=== PATIENT | female | born 1935 | race Caucasian/White ===

== ENCOUNTER → 2016-07-28 | Outpatient (CLI) | payer MEDICARE ==
--- OUTSIDE RECORDS SUMMARY | 2016-07-28 09:45 | XMS REPORT | Continuity of Care Document ---
Author Author [facility] Organization [facility] Address Unknown Phone Unavailable Care Team Providers Care Shear Setter Name Role Phone Raquel Dye PCP [phone] Source Comments Some departments are not documenting in the electronic medical record. If you do not see the information that you expected, contact Release of Information in the Health Information Management department at [phone] for further assistance in locating additional records.[facility] Active Allergies and Adverse Reactions No Known Allergies Current Medications Prescription Sig. Disp. Refills Start End Date Status Date FEXOFENADINE HCL (EZRA Take by mouth daily as Active PO) needed. acetaminophen (TYLENOL) Take 650 mg by mouth as Active 325 mg tablet Needed. metformin-ER(+) Take 1,000 mg by mouth Active (FORTAMET) 1,000 mg daily with dinner. tablet lisinopril (PRINIVIL; Take 5 mg by mouth daily. Active ZESTRIL) 5 mg tablet hydrochlorothiazide Take 25 mg by mouth Active (HYDRODIURIL) 25 mg daily. tablet Active Problems Problem Noted Date Non Hodgkin's lymphoma (HCC) 12/20/2013 Overview: Stage IA-E, B cell, MALT, non-Hodgkin's lymphoma of the orbit originally diagnosed in 2007. Completed two years of maintence Rituxan on 08/31/2011. L ast Assessment & Plan: After discussion with Dr. Vogt, the patient will return to be seen every 6 months with seeing her PCP every 6 months so that she is being evaluated every 3 months. She was concerned about driving in the winter. She will return in July with a repeat CBC, CMP, Beta 2, CRP, IgG, IgM, and IgA. She will call back sooner if she notices any night sweats, abnormal swelling, or unintentional weight loss. Social History Tobacco Use Types Packs/Day Years Used Date Never Smoker Last Filed Vital Signs Vital Sign Reading Time Taken Blood Pressure 135/96 12/20/2013 1:12 PM CDT Pulse 95 12/20/2013 1:12 PM CDT Temperature 37.1 C (98.8 F) 12/20/2013 1:12 PM CDT Respiratory Rate 20 12/20/2013 1:12 PM CDT Height 1.575 m (5' 2") 12/20/2013 1:12 PM CDT Weight 62.596 kg (138 lb) 12/20/2013 1:12 PM CDT Body Mass Index 25.23 12/20/2013 1:12 PM CDT Oxygen Saturation - - Plan of Care Health Maintenance Due Date Last Done Comments Physical (Comprehensive) 01/12/1942 Exam Pertussis Vaccine 01/12/1947 Tetanus Vaccine 01/12/1953 Breast Cancer Screening 1976 Shingles Vaccine 1996 Osteoporosis Screening 01/12/2001 Prevnar/Pneumovax (#1) 01/12/2001 Influenza Vaccine 01/15/2015 Results from Last 3 Months Not on file
== END ==
LOC: FS 09:42
PROVIDERS: ATTEND Internal Medicine Hematology & Oncology
DX: C88.4 Extranodal marginal zone B-cell lymphoma of mucosa-associated lymphoid tissue [MALT-lymphoma] (principal); I10 Essential (primary) hypertension; E11.9 Type 2 diabetes mellitus without complications; I71.9 Aortic aneurysm of unspecified site, without rupture; Z92.3 Personal history of irradiation; Z79.899 Other long term (current) drug therapy
CPT/HCPCS: 99213

== ENCOUNTER → 2016-08-18 | Outpatient (CLI) | payer MEDICARE | LOC: FS 10:03 | PROVIDERS: ATTEND Internal Medicine Hematology & Oncology | DX: C88.4 Extranodal marginal zone B-cell lymphoma of mucosa-associated lymphoid tissue [MALT-lymphoma] (principal); I10 Essential (primary) hypertension; E11.9 Type 2 diabetes mellitus without complications; I71.9 Aortic aneurysm of unspecified site, without rupture; Z92.3 Personal history of irradiation; Z79.899 Other long term (current) drug therapy; Z79.84 Long term (current) use of oral hypoglycemic drugs | CPT/HCPCS: 99213 ==

== ENCOUNTER → 2016-08-25 | Outpatient (CLI) | payer MEDICARE ==
--- NOTE | 2016-08-26 13:30 | Diagnostic Imaging Report ---
EXAMINATION: PET-CT. TECHNIQUE: Serum glucose level at the time of the study is: 165 mg/dL. 12.7 mCi of FDG was administered intravenously followed by obtaining PET images with corresponding noncontrast CT scan images. The CT scan was performed for anatomic correlation and attenuation correction and was not performed according to the diagnostic protocol of the areas covered. The scan was performed from the head to mid thighs. INDICATION: MALT lymphoma. COMPARISON: 02/06/2014. FINDINGS: There is symmetric FDG uptake seen in the brain. In the neck, there is no significant hypermetabolic mass. In the lungs, there are peripheral patchy areas of ground-glass opacity with a mild degree of increased FDG uptake seen with the SUV in the range between 2.5 and 3.5. This is seen bilaterally. It is favored to be related to inflammatory pneumonitis. In the abdomen and pelvis, there is urinary tract excretion of the tracer seen. There are nonfocal areas of moderate intensity uptake seen in the colon probably related to physiologic or inflammatory etiology. No suspicious hypermetabolic mass is identified. Incidental finding of a large calcified gallstone is seen. There is also a small central posterior right breast nodule, which appears smaller compared to 2014 exam suggestive of benign etiology. IMPRESSION: 1. Peripheral pulmonary ground-glass opacities with mild associated hypermetabolism is favored to be related to inflammatory pneumonitis. 2. No suspicious hypermetabolic mass is seen. 3. Large calcified gallstone. Dictated by: Dictated on workstation # [id number]
== END ==
LOC: RAD 08:25
PROVIDERS: ATTEND Internal Medicine Hematology & Oncology
DX: Z01.89 Encounter for other specified special examinations (principal); C88.4 Extranodal marginal zone B-cell lymphoma of mucosa-associated lymphoid tissue [MALT-lymphoma]; C79.51 Secondary malignant neoplasm of bone

== ENCOUNTER → 2016-11-24 | Outpatient (CLI) | payer MEDICARE | LOC: FS 13:18 | PROVIDERS: ATTEND Internal Medicine Hematology & Oncology | DX: C88.4 Extranodal marginal zone B-cell lymphoma of mucosa-associated lymphoid tissue [MALT-lymphoma] (principal); R05 Cough; I10 Essential (primary) hypertension; E11.9 Type 2 diabetes mellitus without complications; I71.2 Thoracic aortic aneurysm, without rupture; Z92.3 Personal history of irradiation; Z79.899 Other long term (current) drug therapy; Z79.84 Long term (current) use of oral hypoglycemic drugs | CPT/HCPCS: 99213 ==

== ENCOUNTER → 2017-01-05 | Outpatient (CLI) | payer MEDICARE | LOC: FS 14:15 | PROVIDERS: ATTEND Internal Medicine Hematology & Oncology | DX: C88.4 Extranodal marginal zone B-cell lymphoma of mucosa-associated lymphoid tissue [MALT-lymphoma] (principal); R05 Cough; I10 Essential (primary) hypertension; E11.9 Type 2 diabetes mellitus without complications; I71.2 Thoracic aortic aneurysm, without rupture; Z92.3 Personal history of irradiation; Z79.899 Other long term (current) drug therapy; Z79.84 Long term (current) use of oral hypoglycemic drugs | CPT/HCPCS: 99213 ==

== ENCOUNTER → 2017-04-13 | Outpatient (CLI) | payer MEDICARE ==
--- NOTE | 2017-04-14 09:31 | Diagnostic Imaging Report ---
EXAMINATION: PET-CT TECHNIQUE: Serum glucose level at the time of the study is: 130 mg/dL. 12.8 mCi of FDG was administered intravenously followed by obtaining PET images with corresponding noncontrast CT scan images. The CT scan was performed for anatomic correlation and attenuation correction and was not performed according to the diagnostic protocol of the areas covered. The scan was performed from the head to mid thighs. INDICATION: MALT lymphoma followup COMPARISON: 08/25/2016 Findings: The brain has symmetric FDG uptake. There is a moderate symmetric uptake seen along the posterior aspect of the vocal cord area, probably physiologic. No convincing corresponding soft tissue mass is seen. In the chest there is no significant hypermetabolic focus of activity or lymphadenopathy seen. In the abdomen and pelvis: Urinary tract excretion of the tracer and prominent bowel activity is seen, presumably physiologic with no suspicious hypermetabolic mass or lymphadenopathy is identified. CT images demonstrate a large gallstone without evidence of cholecystitis. The lungs demonstrate bilateral peripheral fibrotic changes without changes from 08/25/2016. There is also a 4.7 cm ascending aortic aneurysm without significant change. IMPRESSION: 1. No suspicious hypermetabolic lesion or lymph node is noted. 2. Unchanged 4.7 CM ascending aortic aneurysm. 3. Large gallstone with no evidence of cholecystitis. 4. Unchanged peripheral pulmonary fibrotic changes. Dictated by: Dictated on workstation # [id number]
== END ==
LOC: RAD 09:32
PROVIDERS: ATTEND Internal Medicine Hematology & Oncology
DX: C88.4 Extranodal marginal zone B-cell lymphoma of mucosa-associated lymphoid tissue [MALT-lymphoma] (principal); I71.2 Thoracic aortic aneurysm, without rupture; K80.20 Calculus of gallbladder without cholecystitis without obstruction; J84.10 Pulmonary fibrosis, unspecified

== ENCOUNTER → 2017-05-19 | Outpatient (CLI) | payer MEDICARE | LOC: RT 09:06 | PROVIDERS: ATTEND Nurse Practitioner Adult Health | DX: J84.10 Pulmonary fibrosis, unspecified (principal); R06.02 Shortness of breath; C88.4 Extranodal marginal zone B-cell lymphoma of mucosa-associated lymphoid tissue [MALT-lymphoma] ==

== ENCOUNTER → 2017-05-27 | Outpatient (CLI) | payer MEDICARE ==
--- NOTE | 2017-05-27 15:13 | Diagnostic Imaging Report ---
INDICATION: Shortness of breath. History of lymphoma. TECHNIQUE: Two view chest at 3:19 PM. CORRELATION STUDY: Portions of a PET/CT dated 04/13/2017. FINDINGS: The heart size is enlarged. The vasculature does appear to be slightly prominent. There are scattered pulmonary/parenchymal densities throughout both lung bryant, somewhat more pronounced in the peripheral and basilar distribution. While some findings may be chronic, they do appear to be more pronounced when compared with the prior CT imaging, suspect for superimposed likely infiltrate. Edema could also give this appearance. There is also a slightly nodular appearance in some areas noted. The lung bryant overall do appear to be slightly hyperinflated. There is S-type thoracolumbar scoliotic curvature. IMPRESSION: 1. Cardiac enlargement with at least a mild component of vascular congestion. 2. While there does appear to be likely chronic change of the lung bryant, there do appear to be increasing densities, particularly over the lung bases, suspect for superimposed infiltrate versus edema. The possibility of underlying neoplastic involvement would be difficult to exclude. Dictated by: Dictated on workstation # [id number]
== END ==
LOC: RAD 14:49
PROVIDERS: ATTEND Nurse Practitioner Family
DX: I51.7 Cardiomegaly (principal); Z85.72 Personal history of non-Hodgkin lymphomas
CPT/HCPCS: 71046

== ENCOUNTER → 2017-06-10 | Outpatient (CLI) | payer MEDICARE ==
[2017-06-10 12:43] LABS: BUN/CREATININE RATIO 16; CALCIUM 9.9 MG/DL (8.5-10.1); CARBON DIOXIDE 25 MMOL/L (21-32); CHLORIDE 97 MMOL/L (98-107); CREATININE SERUM 0.68 MG/DL (0.60-1.30); GFR ESTIMATED > 60; GLUCOSE 134 MG/DL (70-105); POTASSIUM 4.2 MMOL/L (3.6-5.0); SODIUM 134 MMOL/L (135-145)
== END ==
LOC: LAB 12:05
PROVIDERS: ATTEND Internal Medicine Critical Care Medicine
DX: J44.9 Chronic obstructive pulmonary disease, unspecified (principal); R06.02 Shortness of breath
CPT/HCPCS: 36415; 80048; 83880

== ENCOUNTER 2017-06-15 14:49 | Outpatient (RCR) | payer MEDICARE ==
[2017-04-22 09:02] LABS: BASOPHILS # (AUTO) 0.1 10^3/uL (0.0-0.1); BASOPHILS % (AUTO) 1 % (0-10); EOSINOPHILS # (AUTO) 0.3 10^3/uL (0.0-0.3); EOSINOPHILS % (AUTO) 5 % (0-10); HEMATOCRIT 41 % (35-52); HEMOGLOBIN 13.8 G/DL (11.5-16.0); LYMPHOCYTES % (AUTO) 14 % (12-44); MEAN CORPUSCULAR HEMOGLOBIN 29 PG (25-34); MEAN CORPUSCULAR HGB CONC 34 G/DL (32-36); MEAN CORPUSCULAR VOLUME 85 FL (80-99); MEAN PLATELET VOLUME 9.9 FL (7.4-10.4); MONOCYTES # (AUTO) 0.4 X 10^3 (0.0-1.0); MONOCYTES % (AUTO) 6 % (0-12); NEUTROPHILS # (AUTO) 5.3 X 10^3 (1.8-7.8); NEUTROPHILS % (AUTO) 75 % (42-75); PLATELET COUNT 272 10^3/uL (130-400); RED CELL DISTRIBUTION WIDTH 14.5 % (10.0-14.5); WHITE BLOOD COUNT 7.1 10^3/uL (4.3-11.0)
[2017-04-22 09:25] LABS: BUN/CREATININE RATIO 21; CALCIUM 9.6 MG/DL (8.5-10.1); CARBON DIOXIDE 25 MMOL/L (21-32); CHLORIDE 96 MMOL/L (98-107); CREATININE SERUM 0.62 MG/DL (0.60-1.30); GFR ESTIMATED > 60; GLUCOSE 157 MG/DL (70-105); POTASSIUM 3.8 MMOL/L (3.6-5.0); SODIUM 130 MMOL/L (135-145)
[2017-04-29 08:52] LABS: BASOPHILS # (AUTO) 0.1 10^3/uL (0.0-0.1); BASOPHILS % (AUTO) 1 % (0-10); EOSINOPHILS # (AUTO) 0.4 10^3/uL (0.0-0.3); EOSINOPHILS % (AUTO) 5 % (0-10); HEMATOCRIT 41 % (35-52); LYMPHOCYTES # (AUTO) 1.3 X 10^3 (1.0-4.0); LYMPHOCYTES % (AUTO) 15 % (12-44); MEAN CORPUSCULAR HEMOGLOBIN 29 PG (25-34); MEAN CORPUSCULAR HGB CONC 34 G/DL (32-36); MEAN CORPUSCULAR VOLUME 85 FL (80-99); MEAN PLATELET VOLUME 10.1 FL (7.4-10.4); MONOCYTES # (AUTO) 0.5 X 10^3 (0.0-1.0); MONOCYTES % (AUTO) 5 % (0-12); NEUTROPHILS # (AUTO) 6.6 X 10^3 (1.8-7.8); NEUTROPHILS % (AUTO) 74 % (42-75); PLATELET COUNT 313 10^3/uL (130-400); RED BLOOD COUNT 4.85 10^6/uL (4.35-5.85); RED CELL DISTRIBUTION WIDTH 14.7 % (10.0-14.5); WHITE BLOOD COUNT 8.9 10^3/uL (4.3-11.0)
[2017-04-29 09:09] LABS: BUN/CREATININE RATIO 17; CALCIUM 9.3 MG/DL (8.5-10.1); CARBON DIOXIDE 22 MMOL/L (21-32); CHLORIDE 93 MMOL/L (98-107); CREATININE SERUM 0.65 MG/DL (0.60-1.30); GFR ESTIMATED > 60; GLUCOSE 140 MG/DL (70-105); POTASSIUM 4.5 MMOL/L (3.6-5.0); SODIUM 127 MMOL/L (135-145)
[2017-05-06 09:05] LABS: BASOPHILS # (AUTO) 0.1 10^3/uL (0.0-0.1); BASOPHILS % (AUTO) 1 % (0-10); EOSINOPHILS # (AUTO) 0.5 10^3/uL (0.0-0.3); EOSINOPHILS % (AUTO) 7 % (0-10); HEMATOCRIT 40 % (35-52); HEMOGLOBIN 13.5 G/DL (11.5-16.0); LYMPHOCYTES # (AUTO) 1.1 X 10^3 (1.0-4.0); LYMPHOCYTES % (AUTO) 14 % (12-44); MEAN CORPUSCULAR HEMOGLOBIN 29 PG (25-34); MEAN CORPUSCULAR HGB CONC 34 G/DL (32-36); MEAN CORPUSCULAR VOLUME 86 FL (80-99); MEAN PLATELET VOLUME 10.1 FL (7.4-10.4); MONOCYTES # (AUTO) 0.4 X 10^3 (0.0-1.0); MONOCYTES % (AUTO) 5 % (0-12); NEUTROPHILS # (AUTO) 5.8 X 10^3 (1.8-7.8); NEUTROPHILS % (AUTO) 73 % (42-75); PLATELET COUNT 285 10^3/uL (130-400); RED CELL DISTRIBUTION WIDTH 14.4 % (10.0-14.5); WHITE BLOOD COUNT 7.9 10^3/uL (4.3-11.0)
[2017-05-06 09:25] LABS: BUN/CREATININE RATIO 26; CALCIUM 9.7 MG/DL (8.5-10.1); CARBON DIOXIDE 25 MMOL/L (21-32); CHLORIDE 98 MMOL/L (98-107); CREATININE SERUM 0.65 MG/DL (0.60-1.30); GFR ESTIMATED > 60; GLUCOSE 138 MG/DL (70-105); POTASSIUM 4.4 MMOL/L (3.6-5.0); SODIUM 133 MMOL/L (135-145)
[2017-05-13 08:59] LABS: BASOPHILS # (AUTO) 0.1 10^3/uL (0.0-0.1); BASOPHILS % (AUTO) 1 % (0-10); EOSINOPHILS # (AUTO) 0.5 10^3/uL (0.0-0.3); EOSINOPHILS % (AUTO) 6 % (0-10); HEMATOCRIT 39 % (35-52); HEMOGLOBIN 13.1 G/DL (11.5-16.0); LYMPHOCYTES # (AUTO) 0.9 X 10^3 (1.0-4.0); LYMPHOCYTES % (AUTO) 12 % (12-44); MEAN CORPUSCULAR HEMOGLOBIN 29 PG (25-34); MEAN CORPUSCULAR HGB CONC 34 G/DL (32-36); MEAN CORPUSCULAR VOLUME 85 FL (80-99); MEAN PLATELET VOLUME 9.8 FL (7.4-10.4); MONOCYTES # (AUTO) 0.4 X 10^3 (0.0-1.0); MONOCYTES % (AUTO) 5 % (0-12); NEUTROPHILS # (AUTO) 5.5 X 10^3 (1.8-7.8); NEUTROPHILS % (AUTO) 76 % (42-75); PLATELET COUNT 279 10^3/uL (130-400); RED BLOOD COUNT 4.58 10^6/uL (4.35-5.85); RED CELL DISTRIBUTION WIDTH 14.4 % (10.0-14.5); WHITE BLOOD COUNT 7.3 10^3/uL (4.3-11.0)
[2017-05-13 09:20] LABS: ALANINE AMINOTRANSFERASE 7 U/L (0-55); ALBUMIN 3.6 GM/DL (3.2-4.5); ALKALINE PHOSPHATASE 81 U/L (40-136); BILIRUBIN,TOTAL 0.7 MG/DL (0.1-1.0); BUN/CREATININE RATIO 16; CALCIUM 9.4 MG/DL (8.5-10.1); CARBON DIOXIDE 24 MMOL/L (21-32); CHLORIDE 97 MMOL/L (98-107); CREATININE SERUM 0.67 MG/DL (0.60-1.30); GFR ESTIMATED > 60; GLUCOSE 137 MG/DL (70-105); POTASSIUM 4.3 MMOL/L (3.6-5.0); SODIUM 130 MMOL/L (135-145); TOTAL PROTEIN 7.4 GM/DL (6.4-8.2)
[2017-05-19 10:15] LABS: BASOPHILS # (AUTO) 0.1 10^3/uL (0.0-0.1); BASOPHILS % (AUTO) 1 % (0-10); EOSINOPHILS # (AUTO) 0.5 10^3/uL (0.0-0.3); EOSINOPHILS % (AUTO) 6 % (0-10); HEMATOCRIT 43 % (35-52); HEMOGLOBIN 14.7 G/DL (11.5-16.0); LYMPHOCYTES # (AUTO) 1.2 X 10^3 (1.0-4.0); LYMPHOCYTES % (AUTO) 14 % (12-44); MEAN CORPUSCULAR HEMOGLOBIN 28 PG (25-34); MEAN CORPUSCULAR HGB CONC 34 G/DL (32-36); MEAN CORPUSCULAR VOLUME 84 FL (80-99); MONOCYTES # (AUTO) 0.5 X 10^3 (0.0-1.0); MONOCYTES % (AUTO) 6 % (0-12); NEUTROPHILS # (AUTO) 6.2 X 10^3 (1.8-7.8); NEUTROPHILS % (AUTO) 73 % (42-75); PLATELET COUNT 313 10^3/uL (130-400); RED BLOOD COUNT 5.18 10^6/uL (4.35-5.85); RED CELL DISTRIBUTION WIDTH 14.8 % (10.0-14.5); WHITE BLOOD COUNT 8.4 10^3/uL (4.3-11.0)
[2017-05-19 11:18] LABS: BUN/CREATININE RATIO 27; CALCIUM 9.4 MG/DL (8.5-10.1); CARBON DIOXIDE 23 MMOL/L (21-32); CHLORIDE 95 MMOL/L (98-107); CREATININE SERUM 0.63 MG/DL (0.60-1.30); GFR ESTIMATED > 60; GLUCOSE 112 MG/DL (70-105); POTASSIUM 3.8 MMOL/L (3.6-5.0); SODIUM 130 MMOL/L (135-145)
[2017-05-27 11:46] LABS: BASOPHILS # (AUTO) 0.1 10^3/uL (0.0-0.1); BASOPHILS % (AUTO) 1 % (0-10); EOSINOPHILS # (AUTO) 0.4 10^3/uL (0.0-0.3); EOSINOPHILS % (AUTO) 6 % (0-10); HEMATOCRIT 40 % (35-52); HEMOGLOBIN 13.7 G/DL (11.5-16.0); LYMPHOCYTES # (AUTO) 1.2 X 10^3 (1.0-4.0); LYMPHOCYTES % (AUTO) 17 % (12-44); MEAN CORPUSCULAR HEMOGLOBIN 29 PG (25-34); MEAN CORPUSCULAR HGB CONC 34 G/DL (32-36); MEAN CORPUSCULAR VOLUME 84 FL (80-99); MEAN PLATELET VOLUME 10.2 FL (7.4-10.4); MONOCYTES # (AUTO) 0.5 X 10^3 (0.0-1.0); MONOCYTES % (AUTO) 7 % (0-12); NEUTROPHILS # (AUTO) 4.7 X 10^3 (1.8-7.8); NEUTROPHILS % (AUTO) 69 % (42-75); PLATELET COUNT 285 10^3/uL (130-400); RED BLOOD COUNT 4.75 10^6/uL (4.35-5.85); RED CELL DISTRIBUTION WIDTH 14.5 % (10.0-14.5); WHITE BLOOD COUNT 6.9 10^3/uL (4.3-11.0)
[2017-05-27 12:07] LABS: BUN/CREATININE RATIO 26; CALCIUM 9.4 MG/DL (8.5-10.1); CARBON DIOXIDE 24 MMOL/L (21-32); CHLORIDE 96 MMOL/L (98-107); CREATININE SERUM 0.65 MG/DL (0.60-1.30); GFR ESTIMATED > 60; GLUCOSE 128 MG/DL (70-105); POTASSIUM 3.8 MMOL/L (3.6-5.0); SODIUM 130 MMOL/L (135-145)
[2017-06-03 11:13] LABS: BASOPHILS # (AUTO) 0.1 10^3/uL (0.0-0.1); BASOPHILS % (AUTO) 1 % (0-10); EOSINOPHILS # (AUTO) 0.5 10^3/uL (0.0-0.3); EOSINOPHILS % (AUTO) 5 % (0-10); HEMATOCRIT 42 % (35-52); HEMOGLOBIN 14.3 G/DL (11.5-16.0); LYMPHOCYTES # (AUTO) 1.4 X 10^3 (1.0-4.0); LYMPHOCYTES % (AUTO) 15 % (12-44); MEAN CORPUSCULAR HEMOGLOBIN 29 PG (25-34); MEAN CORPUSCULAR HGB CONC 34 G/DL (32-36); MEAN CORPUSCULAR VOLUME 84 FL (80-99); MONOCYTES # (AUTO) 0.6 X 10^3 (0.0-1.0); MONOCYTES % (AUTO) 6 % (0-12); NEUTROPHILS # (AUTO) 6.8 X 10^3 (1.8-7.8); NEUTROPHILS % (AUTO) 73 % (42-75); PLATELET COUNT 317 10^3/uL (130-400); RED BLOOD COUNT 4.99 10^6/uL (4.35-5.85); RED CELL DISTRIBUTION WIDTH 14.7 % (10.0-14.5); WHITE BLOOD COUNT 9.3 10^3/uL (4.3-11.0)
[2017-06-03 11:35] LABS: BUN/CREATININE RATIO 16; CALCIUM 9.7 MG/DL (8.5-10.1); CARBON DIOXIDE 22 MMOL/L (21-32); CHLORIDE 95 MMOL/L (98-107); CREATININE SERUM 0.68 MG/DL (0.60-1.30); GFR ESTIMATED > 60; GLUCOSE 138 MG/DL (70-105); SODIUM 130 MMOL/L (135-145)
[2017-06-03 11:36] LABS: POTASSIUM 4.7 MMOL/L (3.6-5.0)
[~2017-06-15] VITALS: Ht 160 cm; Wt 55.8 kg
[~2017-06-15 14:49] MED LIST: ACETAMINOPHEN 325 MG TAB (TYLENOL) CANCER CTR PO PRN; DIPHENHYDRAMINE 12.5 MG/5 ML PO PRN; NS IV 1000 ML (CANCER CTR) IV SCH; diphenhydrAMINE 25 MG TAB (BENADRYL) CANCER CENTER PO ONE; diphenhydrAMINE 25 MG TAB (BENADRYL) CANCER CENTER PO SCH; diphenhydrAMINE 50 MG/ML INJ (CANCER CENTER) ONE; riTUXimab 500 MG, riTUXimab FOR IV INJ CONC 100 MG in NS (IVPB) CANCER CENTER ONLY 150 ML IV SCH
[2017-06-15 15:08] LABS: BASOPHILS # (AUTO) 0.1 10^3/uL (0.0-0.1); BASOPHILS % (AUTO) 1 % (0-10); EOSINOPHILS # (AUTO) 0.4 10^3/uL (0.0-0.3); EOSINOPHILS % (AUTO) 4 % (0-10); HEMATOCRIT 38 % (35-52); HEMOGLOBIN 12.8 G/DL (11.5-16.0); LYMPHOCYTES # (AUTO) 1.2 X 10^3 (1.0-4.0); LYMPHOCYTES % (AUTO) 12 % (12-44); MEAN CORPUSCULAR HEMOGLOBIN 28 PG (25-34); MEAN CORPUSCULAR HGB CONC 34 G/DL (32-36); MEAN CORPUSCULAR VOLUME 84 FL (80-99); MEAN PLATELET VOLUME 10.1 FL (7.4-10.4); MONOCYTES # (AUTO) 0.4 X 10^3 (0.0-1.0); MONOCYTES % (AUTO) 4 % (0-12); NEUTROPHILS # (AUTO) 8.1 X 10^3 (1.8-7.8); NEUTROPHILS % (AUTO) 80 % (42-75); PLATELET COUNT 279 10^3/uL (130-400); RED BLOOD COUNT 4.53 10^6/uL (4.35-5.85); RED CELL DISTRIBUTION WIDTH 14.5 % (10.0-14.5); WHITE BLOOD COUNT 10.2 10^3/uL (4.3-11.0)
[2017-06-15 15:30] LABS: ALANINE AMINOTRANSFERASE 15 U/L (0-55); ALBUMIN 3.6 GM/DL (3.2-4.5); ALKALINE PHOSPHATASE 94 U/L (40-136); BILIRUBIN,TOTAL 0.8 MG/DL (0.1-1.0); BUN/CREATININE RATIO 21; CALCIUM 9.4 MG/DL (8.5-10.1); CARBON DIOXIDE 24 MMOL/L (21-32); CHLORIDE 98 MMOL/L (98-107); CREATININE SERUM 0.75 MG/DL (0.60-1.30); GFR ESTIMATED > 60; GLUCOSE 123 MG/DL (70-105); POTASSIUM 3.7 MMOL/L (3.6-5.0); SODIUM 133 MMOL/L (135-145); TOTAL PROTEIN 7.6 GM/DL (6.4-8.2)
== END 2017-07-05 | disposition home or self-care (01) ==
LOC: ONC 14:49
PROVIDERS: ATTEND Internal Medicine Hematology & Oncology
DX: Z51.11 Encounter for antineoplastic chemotherapy (principal); C88.4 Extranodal marginal zone B-cell lymphoma of mucosa-associated lymphoid tissue [MALT-lymphoma]; R05 Cough; I10 Essential (primary) hypertension; E11.9 Type 2 diabetes mellitus without complications; I71.2 Thoracic aortic aneurysm, without rupture; Z92.3 Personal history of irradiation; Z79.899 Other long term (current) drug therapy; Z79.84 Long term (current) use of oral hypoglycemic drugs
CPT/HCPCS: 36415; 80048; 80053; 83615; 85025; 96375; 96413; 96415; 99213

== ENCOUNTER → 2017-06-24 | Outpatient (CLI) | payer MEDICARE ==
[~2017-06-24] MED LIST changes: -ACETAMINOPHEN 325 MG TAB (TYLENOL) CANCER CTR PO PRN; -DIPHENHYDRAMINE 12.5 MG/5 ML PO PRN; +IOHEXOL 350 MG/ML 150 ML (OMNIPAQUE 350) VIAL IV ONE; +NS 250 ML (IVPB) BAG IV ONE; -NS IV 1000 ML (CANCER CTR) IV SCH; -diphenhydrAMINE 25 MG TAB (BENADRYL) CANCER CENTER PO ONE; -diphenhydrAMINE 25 MG TAB (BENADRYL) CANCER CENTER PO SCH; -diphenhydrAMINE 50 MG/ML INJ (CANCER CENTER) ONE; -riTUXimab 500 MG, riTUXimab FOR IV INJ CONC 100 MG in NS (IVPB) CANCER CENTER ONLY 150 ML IV SCH
--- NOTE | 2017-06-24 13:14 | Diagnostic Imaging Report ---
PROCEDURE: CT angiography of the chest with contrast. TECHNIQUE: Multiple contiguous axial images were obtained through the chest after uneventful bolus administration of intravenous contrast. Reconstructed CTA MIP acquisitions were also performed. INDICATION: Pulmonary fibrosis, shortness of breath. COMPARISON: None. FINDINGS: There is datw-vk-rovzlulb cardiac enlargement. There is chronic-appearing ascending aortic aneurysm up to 48 mm. No obvious dissection flap is seen. There is no pulmonary embolism. Coronary artery disease is present. There is no pericardial or pleural effusion. There is a moderate-sized hiatal hernia. Chronic fibrotic changes are seen throughout both lungs. There is honeycombing in the lung bases. No pneumothorax or large effusion is seen. No obvious suspicious nodule or mass is identified. Osseous structures are age appropriate. IMPRESSION: 1. No pulmonary embolism identified 2. Chronic-appearing ascending aortic aneurysm measuring 48 mm. 3. Cardiac enlargement with coronary artery disease. 4. Hiatal hernia. 5. Chronic-appearing infiltrates and honeycombing likely pulmonary fibrosis. This may be further evaluated with CT high-resolution chest. Dictated by: Dictated on workstation # [id number]
== END ==
LOC: RAD 12:03
PROVIDERS: ATTEND Nurse Practitioner Family
DX: J84.10 Pulmonary fibrosis, unspecified (principal); I71.2 Thoracic aortic aneurysm, without rupture; I25.10 Atherosclerotic heart disease of native coronary artery without angina pectoris; I51.7 Cardiomegaly; J44.9 Chronic obstructive pulmonary disease, unspecified; J30.9 Allergic rhinitis, unspecified
CPT/HCPCS: 71275

== ENCOUNTER 2017-10-07 10:34 | Outpatient (RCR) | payer MEDICARE ==
[2017-07-15 14:58] LABS: BASOPHILS # (AUTO) 0.1 10^3/uL (0.0-0.1); BASOPHILS % (AUTO) 1 % (0-10); EOSINOPHILS # (AUTO) 0.1 10^3/uL (0.0-0.3); EOSINOPHILS % (AUTO) 1 % (0-10); HEMATOCRIT 39 % (35-52); HEMOGLOBIN 13.2 G/DL (11.5-16.0); LYMPHOCYTES # (AUTO) 0.7 X 10^3 (1.0-4.0); LYMPHOCYTES % (AUTO) 8 % (12-44); MEAN CORPUSCULAR HEMOGLOBIN 28 PG (25-34); MEAN CORPUSCULAR HGB CONC 34 G/DL (32-36); MEAN CORPUSCULAR VOLUME 83 FL (80-99); MEAN PLATELET VOLUME 9.8 FL (7.4-10.4); MONOCYTES # (AUTO) 0.3 X 10^3 (0.0-1.0); MONOCYTES % (AUTO) 3 % (0-12); NEUTROPHILS # (AUTO) 8.1 X 10^3 (1.8-7.8); NEUTROPHILS % (AUTO) 88 % (42-75); PLATELET COUNT 278 10^3/uL (130-400); RED BLOOD COUNT 4.65 10^6/uL (4.35-5.85); RED CELL DISTRIBUTION WIDTH 15.1 % (10.0-14.5); WHITE BLOOD COUNT 9.2 10^3/uL (4.3-11.0)
[2017-07-15 15:17] LABS: ALANINE AMINOTRANSFERASE 15 U/L (0-55); ALBUMIN 3.9 GM/DL (3.2-4.5); ALKALINE PHOSPHATASE 72 U/L (40-136); BILIRUBIN,TOTAL 0.5 MG/DL (0.1-1.0); BUN/CREATININE RATIO 25; CALCIUM 9.7 MG/DL (8.5-10.1); CARBON DIOXIDE 21 MMOL/L (21-32); CHLORIDE 97 MMOL/L (98-107); CREATININE SERUM 0.76 MG/DL (0.60-1.30); GFR ESTIMATED > 60; GLUCOSE 241 MG/DL (70-105); POTASSIUM 4.4 MMOL/L (3.6-5.0); SODIUM 132 MMOL/L (135-145); TOTAL PROTEIN 7.7 GM/DL (6.4-8.2)
[2017-10-07 10:50] LABS: BASOPHILS # (AUTO) 0.1 10^3/uL (0.0-0.1); BASOPHILS % (AUTO) 1 % (0-10); EOSINOPHILS # (AUTO) 0.3 10^3/uL (0.0-0.3); EOSINOPHILS % (AUTO) 3 % (0-10); HEMATOCRIT 38 % (35-52); HEMOGLOBIN 12.7 G/DL (11.5-16.0); LYMPHOCYTES # (AUTO) 1.1 X 10^3 (1.0-4.0); LYMPHOCYTES % (AUTO) 13 % (12-44); MEAN CORPUSCULAR HEMOGLOBIN 28 PG (25-34); MEAN CORPUSCULAR HGB CONC 33 G/DL (32-36); MEAN CORPUSCULAR VOLUME 86 FL (80-99); MEAN PLATELET VOLUME 9.9 FL (7.4-10.4); MONOCYTES # (AUTO) 0.4 X 10^3 (0.0-1.0); MONOCYTES % (AUTO) 5 % (0-12); NEUTROPHILS # (AUTO) 6.2 X 10^3 (1.8-7.8); NEUTROPHILS % (AUTO) 78 % (42-75); PLATELET COUNT 286 10^3/uL (130-400); RED BLOOD COUNT 4.48 10^6/uL (4.35-5.85); RED CELL DISTRIBUTION WIDTH 14.7 % (10.0-14.5)
[2017-10-07 11:10] LABS: ALANINE AMINOTRANSFERASE 12 U/L (0-55); ALBUMIN 4.2 GM/DL (3.2-4.5); ALKALINE PHOSPHATASE 74 U/L (40-136); BILIRUBIN,TOTAL 0.9 MG/DL (0.1-1.0); BUN/CREATININE RATIO 13; CALCIUM 9.8 MG/DL (8.5-10.1); CARBON DIOXIDE 25 MMOL/L (21-32); CHLORIDE 99 MMOL/L (98-107); CREATININE SERUM 0.68 MG/DL (0.60-1.30); GFR ESTIMATED > 60; GLUCOSE 116 MG/DL (70-105); POTASSIUM 4.1 MMOL/L (3.6-5.0); SODIUM 133 MMOL/L (135-145); TOTAL PROTEIN 7.9 GM/DL (6.4-8.2)
== END 2017-10-13 | disposition home or self-care (01) ==
LOC: ONC 10:34
PROVIDERS: ATTEND Internal Medicine Hematology & Oncology
DX: C88.4 Extranodal marginal zone B-cell lymphoma of mucosa-associated lymphoid tissue [MALT-lymphoma] (principal); R05 Cough; J84.10 Pulmonary fibrosis, unspecified; J44.9 Chronic obstructive pulmonary disease, unspecified; I10 Essential (primary) hypertension; E11.9 Type 2 diabetes mellitus without complications; I71.2 Thoracic aortic aneurysm, without rupture; Z92.3 Personal history of irradiation; Z79.899 Other long term (current) drug therapy; Z79.84 Long term (current) use of oral hypoglycemic drugs
CPT/HCPCS: 36415; 80053; 83615; 85025; 99213

== ENCOUNTER 2018-01-04 10:25 | Outpatient (RCR) | payer MEDICARE ==
[2018-01-04 10:38] LABS: BASOPHILS # (AUTO) 0.1 10^3/uL (0.0-0.1); BASOPHILS % (AUTO) 1 % (0-10); EOSINOPHILS # (AUTO) 0.3 10^3/uL (0.0-0.3); EOSINOPHILS % (AUTO) 3 % (0-10); HEMATOCRIT 35 % (35-52); HEMOGLOBIN 11.7 G/DL (11.5-16.0); LYMPHOCYTES % (AUTO) 9 % (12-44); MEAN CORPUSCULAR HEMOGLOBIN 28 PG (25-34); MEAN CORPUSCULAR HGB CONC 33 G/DL (32-36); MEAN CORPUSCULAR VOLUME 83 FL (80-99); MONOCYTES # (AUTO) 0.4 X 10^3 (0.0-1.0); MONOCYTES % (AUTO) 4 % (0-12); NEUTROPHILS # (AUTO) 8.8 X 10^3 (1.8-7.8); NEUTROPHILS % (AUTO) 84 % (42-75); PLATELET COUNT 258 10^3/uL (130-400); RED BLOOD COUNT 4.25 10^6/uL (4.35-5.85); RED CELL DISTRIBUTION WIDTH 14.8 % (10.0-14.5); WHITE BLOOD COUNT 10.5 10^3/uL (4.3-11.0)
[2018-01-04 11:01] LABS: ALANINE AMINOTRANSFERASE 10 U/L (0-55); ALBUMIN 3.9 GM/DL (3.2-4.5); ALKALINE PHOSPHATASE 86 U/L (40-136); BILIRUBIN,TOTAL 0.9 MG/DL (0.1-1.0); BUN/CREATININE RATIO 15; CALCIUM 9.7 MG/DL (8.5-10.1); CARBON DIOXIDE 28 MMOL/L (21-32); CHLORIDE 96 MMOL/L (98-107); CREATININE SERUM 0.73 MG/DL (0.60-1.30); GFR ESTIMATED > 60; GLUCOSE 232 MG/DL (70-105); POTASSIUM 3.6 MMOL/L (3.6-5.0); SODIUM 131 MMOL/L (135-145); TOTAL PROTEIN 7.6 GM/DL (6.4-8.2)
== END 2018-01-14 | disposition home or self-care (01) ==
LOC: ONC 10:25
PROVIDERS: ATTEND Internal Medicine Hematology & Oncology
DX: C88.4 Extranodal marginal zone B-cell lymphoma of mucosa-associated lymphoid tissue [MALT-lymphoma] (principal); R05 Cough; J84.10 Pulmonary fibrosis, unspecified; J44.9 Chronic obstructive pulmonary disease, unspecified; I10 Essential (primary) hypertension; E11.9 Type 2 diabetes mellitus without complications; I71.2 Thoracic aortic aneurysm, without rupture; Z92.3 Personal history of irradiation; Z79.899 Other long term (current) drug therapy; Z79.84 Long term (current) use of oral hypoglycemic drugs
CPT/HCPCS: 36415; 80053; 83615; 85025; 99213

== ENCOUNTER 2018-01-20 07:48 | Outpatient (RCR) | payer MEDICARE | END 2018-02-13 | disposition home or self-care (01) | LOC: CARD 07:48 | PROVIDERS: ATTEND Internal Medicine Interventional Cardiology | DX: R00.0 Tachycardia, unspecified (principal); R06.02 Shortness of breath; R00.2 Palpitations; I10 Essential (primary) hypertension; E11.9 Type 2 diabetes mellitus without complications; J44.9 Chronic obstructive pulmonary disease, unspecified | CPT/HCPCS: 93225; 93226 ==

== ENCOUNTER 2018-04-05 10:24 | Outpatient (RCR) | payer MEDICARE ==
[2018-04-05 10:36] LABS: BASOPHILS # (AUTO) 0.1 10^3/uL (0.0-0.1); BASOPHILS % (AUTO) 0 % (0-10); EOSINOPHILS # (AUTO) 0.4 10^3/uL (0.0-0.3); EOSINOPHILS % (AUTO) 4 % (0-10); HEMATOCRIT 38 % (35-52); HEMOGLOBIN 12.5 G/DL (11.5-16.0); LYMPHOCYTES # (AUTO) 1.4 X 10^3 (1.0-4.0); LYMPHOCYTES % (AUTO) 13 % (12-44); MEAN CORPUSCULAR HEMOGLOBIN 28 PG (25-34); MEAN CORPUSCULAR HGB CONC 33 G/DL (32-36); MEAN CORPUSCULAR VOLUME 83 FL (80-99); MEAN PLATELET VOLUME 9.7 FL (7.4-10.4); MONOCYTES # (AUTO) 0.7 X 10^3 (0.0-1.0); MONOCYTES % (AUTO) 6 % (0-12); NEUTROPHILS # (AUTO) 8.8 X 10^3 (1.8-7.8); NEUTROPHILS % (AUTO) 77 % (42-75); PLATELET COUNT 293 10^3/uL (130-400); RED CELL DISTRIBUTION WIDTH 15.5 % (10.0-14.5); WHITE BLOOD COUNT 11.3 10^3/uL (4.3-11.0)
[2018-04-05 10:54] LABS: ALANINE AMINOTRANSFERASE 13 U/L (0-55); ALKALINE PHOSPHATASE 66 U/L (40-136); BILIRUBIN,TOTAL 0.8 MG/DL (0.1-1.0); BUN/CREATININE RATIO 19; CALCIUM 9.9 MG/DL (8.5-10.1); CARBON DIOXIDE 27 MMOL/L (21-32); CHLORIDE 98 MMOL/L (98-107); CREATININE SERUM 0.69 MG/DL (0.60-1.30); GFR ESTIMATED > 60; GLUCOSE 120 MG/DL (70-105); POTASSIUM 3.3 MMOL/L (3.6-5.0); SODIUM 135 MMOL/L (135-145); TOTAL PROTEIN 7.7 GM/DL (6.4-8.2)
== END 2018-07-04 | disposition home or self-care (01) ==
LOC: ONC 10:24
PROVIDERS: ATTEND Internal Medicine Hematology & Oncology
DX: C88.4 Extranodal marginal zone B-cell lymphoma of mucosa-associated lymphoid tissue [MALT-lymphoma] (principal); R05 Cough; J84.10 Pulmonary fibrosis, unspecified; J44.9 Chronic obstructive pulmonary disease, unspecified; I10 Essential (primary) hypertension; E11.9 Type 2 diabetes mellitus without complications; I71.2 Thoracic aortic aneurysm, without rupture; Z92.3 Personal history of irradiation; Z79.899 Other long term (current) drug therapy; Z79.84 Long term (current) use of oral hypoglycemic drugs
CPT/HCPCS: 36415; 80053; 83615; 85025; 99213

== ENCOUNTER → 2018-06-07 | Outpatient (CLI) | payer MEDICARE | LOC: LAB 11:19 | PROVIDERS: ATTEND Nurse Practitioner Family | DX: S00.31XA Abrasion of nose, initial encounter (principal); X58.XXXA Exposure to other specified factors, initial encounter | CPT/HCPCS: 87081 ==

== ENCOUNTER 2018-07-25 17:30 | Emergency (ER) | payer MEDICARE ==
[~2018-07-25] VITALS: Ht 160 cm; Wt 45.4 kg
[2018-07-25 18:07] VITALS: BP 129/89
[2018-07-25] MEDS ORDERED: OXYMETAZOLINE (AFRIN) 0.05% NA 15 ML BTL ONE (18:26)
[2018-07-25] MEDS ORDERED: OXYMETAZOLINE (AFRIN) 0.05% NA 15 ML BTL STA (18:26)
--- NOTE | 2018-07-25 19:00 | ED EENT ---
History of Present Illness General Stated Complaint: BLOODY NOSE, PT ON BLOOD THINNERS History of Present Illness Date Seen by Provider: Jul 25, 2018 Time Seen by Provider: 06:20 Initial Comments Initially seen in waiting room with rhino rocket placed in L naris by EDT. This is an 83-year-old female with a history of atrial fibrillation on eliquis here with epistaxis. This is been going on for the last couple of hours intermittently, it is exclusively coming from the left naris. No fever or headache or facial pain. No lightheadedness or shortness of breath or chest pain. avionics repair technician had placed a left-sided Rhino Rocket prior to my arrival, patient feels that there may still be a trickle of blood in the pharynx. Allergies and Home Medications Allergies Coded Allergies: neomycin (Verified Allergy, Unknown, 04/14/17) Patient Home Medication List Home Medication List Reviewed: Yes Review of Systems Review of Systems Constitutional: no symptoms reported Eyes: No Symptoms Reported Ears: No Symptoms Reported Nose: see HPI Mouth: no symptoms reported Throat: see HPI Respiratory: no symptoms reported Cardiovascular: no symptoms reported Gastrointestinal: no symptoms reported Musculoskeletal: no symptoms reported Skin: no symptoms reported Neurological: No Symptoms Reported Hematologic/Lymphatic: No Symptoms Reported Immunological/Allergic: no symptoms reported Past Tnktbmd-Wtgffe-Mfsdva Hx Past Med/Social Hx: Reviewed Nursing Past Med/Soc Hx Patient Social History Recent Foreign Travel: No Contact w/Someone Who Travel: No Physical Exam Vital Signs Vital Signs - First Documented 07/25/18 18:07 Temp 97.4 Pulse 78 Resp 40 B/P (MAP) 129/89 (102) Pulse Ox 100 O2 Delivery Simple Mask Height, Weight, BMI Height: '" Weight: lbs. oz. kg; BMI Method: General Appearance: no apparent distress (frail elderly female in a wheelchair with a left-sided Rhino Rocket partially inserted in the naris, no active bleeding is seen externally, initially wearing an oxygen mask) Nose: other (initially there is no external bleeding, there is a small amount of blood in the posterior pharynx even after swallowing several times. The Rhino Rocket is removed, it is dry, patient is instructed to blow her nose and a large amount of clot is removed. There appears to be oozing of blood from the septal mucosa on the left side) Mouth/Throat: other (small blood in the posterior pharynx, otherwise unremarkable) Neck: supple Cardiovascular: regular rate, rhythm Respiratory: lungs clear, other (mild expiratory wheezes) Gastrointestinal: non tender, soft Neurologic/Psychiatric: alert Skin: warm/dry Procedures/Interventions Nasal : Nasal Location: Left Clots Cleared from Nasal: Patient Blowing Nasal Drops Instilled: Afrin Inspection with: Otoscope Nasal Procedures: Rapid Rhino (4.5 cm, 5.5 cm met resistance and was discontinued) Progress 4 mL's of air is insufflated into the Rhino Rocket with no further bleeding anteriorly or posteriorly. Patient will continue to be monitored in the emergency department for at least 15 minutes to ensure no further bleeding. Progress/Results/Core Measures Results/Orders My Orders Orders - SHANNON WIGGINS DO Oxymetazoline 0.05% Nasal [place] (Afrin 0. (07/25/18 18:26) Oxymetazoline 0.05% Nasal [place] (Afrin 0. (07/25/18 18:26) Vital Signs/I&O 07/25/18 07/25/18 18:07 18:10 Temp 97.4 97.4 Pulse 78 78 Resp 40 40 B/P (MAP) 129/89 (102) 129/89 (102) Pulse Ox 100 100 O2 Delivery Simple Mask Room Air Blood Pressure Mean: 102 Progress Progress Note : Progress Note I inserted a 4.5 cm anterior Rhino Rocket in the left naris after soaking it in sterile water without difficulty. I insufflated 4 mL's of air. Patient was observed for about 20 minutes thereafter with no further bleeding and no blood in the pharynx. She felt comfortable going home and will follow up with ENT as soon as possible. She will return for any concerning change in her condition. Note made of an elevated respiratory rate upon arrival, at the time of my evaluation patient was calm, in no acute distress, she had good air exchange on her lung exam, she wears oxygen at home chronically and it is not clear that she is wearing oxygen when she first came in. She and her family member would like to go home. Departure Impression Primary Impression: Anterior epistaxis Additional Impression: Anticoagulated Disposition: 01 HOME, SELF-CARE Condition: Stable Departure-Patient Inst. Referrals: NO,LOCAL PHYSICIAN (PCP) Primary Care Physician VALE BRONSON (Family) Primary Care Physician CANDELARIO GOMEZ MD, JARED T DO Jul 25, 2018 19:00
[2018-07-25 19:37] VITALS: BP 119/86
--- NOTE | 2018-07-25 19:37 | NUR ---
DISCHARGE INSTRUCTIOSN REVIEWED WITH PATIET AND FAMILY, DENY QUESTIONS AT THIS TIME. PATIENT ESCORTED OUT VIA WHEELCHAIR BY DEONNA DOMINGO
[2018-07-26] MEDS ORDERED: METFORMIN 1000 MG (01:51)
[2018-07-26] MEDS ORDERED: HYDROCHLOROTHIAZIDE 25 MG (01:51)
[2018-07-26] MEDS ORDERED: ELIQUIS 2.5 MG (01:51)
[2018-07-26] MEDS ORDERED: ALBUTEROL (01:51)
[2018-07-26] MEDS ORDERED: PREDNISONE 10 MG (01:51)
[2018-07-26] MEDS ORDERED: DILTIAZEM HCL 60 MG (01:51)
[2018-07-26] MEDS ORDERED: POTASSIUM CHLORIDE 10 MEQ (01:51)
[2018-07-26] MEDS ORDERED: BUDESONIDE 0.5 MG/2 ML (01:51)
[2018-07-26] MEDS ORDERED: ARTIFICIAL TEARS (01:51)
[2018-07-26] MEDS ORDERED: OMEPRAZOLE 10 MG (01:51)
[2018-07-26] MEDS ORDERED: IPRATROPIUM (01:51)
[2018-07-26] MEDS ORDERED: AMLO5TAB9 PO (01:57)
[2018-07-26] MEDS ORDERED: FEXO180T84 PO (01:57)
[2018-07-26] MEDS ORDERED: METO-387 PO (01:57)
[2018-07-26] MEDS ORDERED: FLUT9.9S NS (01:57)
== END 2018-07-25 19:37 | disposition home or self-care (01) ==
LOC: EDUNIT# 17:30 → ER FS 17:32
DX: R04.0 Epistaxis (principal); Z88.1 Allergy status to other antibiotic agents; Z79.01 Long term (current) use of anticoagulants
CPT/HCPCS: 30901

== ENCOUNTER 2018-08-02 10:02 | Outpatient (RCR) | payer MEDICARE ==
[~2018-08-02 10:02] MED LIST changes: +ALBUTEROL; +AMLO5TAB9 PO; +ARTIFICIAL TEARS; +BUDESONIDE 0.5 MG/2 ML; +DILTIAZEM HCL 60 MG; +ELIQUIS 2.5 MG; +FEXO180T84 PO; +FLUT9.9S NS; +HYDROCHLOROTHIAZIDE 25 MG; -IOHEXOL 350 MG/ML 150 ML (OMNIPAQUE 350) VIAL IV ONE; +IPRATROPIUM; +METFORMIN 1000 MG; +METO-387 PO; -NS 250 ML (IVPB) BAG IV ONE; +OMEPRAZOLE 10 MG; +POTASSIUM CHLORIDE 10 MEQ; +PREDNISONE 10 MG
[2018-08-02 10:11] LABS: BASOPHILS # (AUTO) 0.1 10^3/uL (0.0-0.1); BASOPHILS % (AUTO) 1 % (0-10); EOSINOPHILS # (AUTO) 0.2 10^3/uL (0.0-0.3); EOSINOPHILS % (AUTO) 3 % (0-10); HEMATOCRIT 36 % (35-52); HEMOGLOBIN 11.8 G/DL (11.5-16.0); LYMPHOCYTES # (AUTO) 1.3 X 10^3 (1.0-4.0); LYMPHOCYTES % (AUTO) 18 % (12-44); MEAN CORPUSCULAR HEMOGLOBIN 28 PG (25-34); MEAN CORPUSCULAR HGB CONC 33 G/DL (32-36); MEAN CORPUSCULAR VOLUME 85 FL (80-99); MEAN PLATELET VOLUME 9.9 FL (7.4-10.4); MONOCYTES # (AUTO) 0.4 X 10^3 (0.0-1.0); MONOCYTES % (AUTO) 6 % (0-12); NEUTROPHILS # (AUTO) 5.3 X 10^3 (1.8-7.8); NEUTROPHILS % (AUTO) 73 % (42-75); PLATELET COUNT 261 10^3/uL (130-400); RED CELL DISTRIBUTION WIDTH 14.2 % (10.0-14.5); WHITE BLOOD COUNT 7.2 10^3/uL (4.3-11.0)
[2018-08-02 10:28] LABS: ALANINE AMINOTRANSFERASE 11 U/L (0-55); ALBUMIN 3.8 GM/DL (3.2-4.5); ALKALINE PHOSPHATASE 55 U/L (40-136); BILIRUBIN,TOTAL 0.5 MG/DL (0.1-1.0); BUN/CREATININE RATIO 14; CALCIUM 9.3 MG/DL (8.5-10.1); CARBON DIOXIDE 27 MMOL/L (21-32); CHLORIDE 97 MMOL/L (98-107); CREATININE SERUM 0.74 MG/DL (0.60-1.30); GFR ESTIMATED > 60; GLUCOSE 173 MG/DL (70-105); POTASSIUM 3.1 MMOL/L (3.6-5.0); SODIUM 131 MMOL/L (135-145)
== END 2018-10-31 | disposition home or self-care (01) ==
LOC: ONC 10:02
PROVIDERS: ATTEND Internal Medicine Hematology & Oncology
DX: C88.4 Extranodal marginal zone B-cell lymphoma of mucosa-associated lymphoid tissue [MALT-lymphoma] (principal); J84.10 Pulmonary fibrosis, unspecified; J44.9 Chronic obstructive pulmonary disease, unspecified; I10 Essential (primary) hypertension; E11.9 Type 2 diabetes mellitus without complications; I71.2 Thoracic aortic aneurysm, without rupture; Z92.3 Personal history of irradiation; Z79.899 Other long term (current) drug therapy; Z79.84 Long term (current) use of oral hypoglycemic drugs
CPT/HCPCS: 36415; 80053; 85025; 99213

== ENCOUNTER 2018-08-18 09:19 | Emergency (ER) | payer MEDICARE ==
[~2018-08-18] VITALS: Ht 160 cm; Wt 45.4 kg
[2018-08-18 10:16] VITALS: BP 155/94
--- NOTE | 2018-08-18 10:18 | ED EENT ---
History of Present Illness General Chief Complaint: Nasal Problems Stated Complaint: EPISTAXIS Nursing Triage Note: Patient reports spontaneous bilateral nosebleed for approximately 1 hour, history of frequent nosebleeds with packing, on eliquis for a-fib. Last saw ENT 3 weeks ago, no new recommendations, patient has two humidifiers at home, oxygen is humidified, lubricant applied to nares regularly. History of Present Illness Date Seen by Provider: Aug 18, 2018 Time Seen by Provider: 09:55 This is an 83-year-old female seen here last month for epistaxis, here for recurrent epistaxis. She takes Eliquis for atrial fibrillation. After her last visit she did follow-up with ENT but did not require cautery or other specific intervention she states. She wears oxygen svfxqd-gji-ohvws that is humidified however, she also applies a non-petroleum based nasal mucosal emollient. She also had a nosebleed this past Wednesday which she was able to stop by holding pressure. It appeared that blood was coming from both nostrils today. She does endorse anxiety when she gets a nosebleed. She denies any facial pain or acute on chronic dyspnea. No fever. No other symptoms. Allergies and Home Medications Allergies Coded Allergies: neomycin (Verified Allergy, Unknown, 04/14/17) Home Medications Amlodipine Besylate 5 Mg Tablet, 5 MG PO DAILY, (Reported) Fluticasone Propionate 9.9 Ml [place].susp, 1 SPRAY NS DAILY, (Reported) 1 SPRAY EACH NARE DAILY Metoprolol Succinate 25 Mg Tab.er.24h, 25 MG PO BID, (Reported) Patient Home Medication List Home Medication List Reviewed: Yes Review of Systems Review of Systems Constitutional: no symptoms reported Eyes: No Symptoms Reported Ears: No Symptoms Reported Nose: see HPI Mouth: no symptoms reported Throat: no symptoms reported Respiratory: no symptoms reported Cardiovascular: no symptoms reported Gastrointestinal: no symptoms reported Musculoskeletal: no symptoms reported Skin: no symptoms reported Neurological: Anxiety Hematologic/Lymphatic: No Symptoms Reported Immunological/Allergic: no symptoms reported Past Ttxdekz-Jwfvpq-Jhjgpu Hx Past Med/Social Hx: Reviewed Nursing Past Med/Soc Hx Patient Social History Alcohol Use: Denies Use Recreational Drug Use: No Smoking Status: Never a Smoker 2nd Hand Smoke Exposure: No Recent Foreign Travel: No Contact w/Someone Who Travel: No Recent Infectious Disease Expo: No Recent Hopitalizations: No Physical Abuse: No Sexual Abuse: No Mistreated: No Fear: No Immunizations Up To Date Date of Influenza Vaccine: Mar 17, 2019 Seasonal Allergies Seasonal Allergies: Yes Past Medical History Surgeries: Yes Eye Surgery Respiratory: No Cardiac: Yes Atrial Fibrillation, Hypertension Neurological: No Genitourinary: No Gastrointestinal: Yes Gastroesophageal Reflux Musculoskeletal: No Endocrine: Yes Diabetes, Non-Insulin dep HEENT: Yes (OP surgeries on eyes, Non-Hodgkins Lymphoma ) Cataract Cancer: Yes (Non-Hodgkins Lyphoma) Lymphoma Psychosocial: No Integumentary: No Physical Exam Vital Signs Vital Signs - First Documented 08/18/18 09:30 Temp 99.3 Pulse 97 Resp 28 B/P (MAP) 156/101 (119) Pulse Ox 99 O2 Delivery Simple Mask O2 Flow Rate 2.00 Height, Weight, BMI Height: 5'3.00" Weight: 100lbs. oz. 45.146244tl; BMI Method:Stated General Appearance: no apparent distress (wearing an oxygen mask over her mouth , does not appear particularly anxious and despite an apparently increased respiratory rate otherwise does not appear to be in respiratory distress) Nose: other (the septal mucosa bilaterally appears friable however there is no active bleeding in the nose or in the pharynx, there is no clotted blood present ) Neck: supple Cardiovascular: normal peripheral pulses, regular rate, rhythm (grossly regular rate and rhythm) Respiratory: lungs clear; No rales, No rhonchi, No stridor, No wheezing Gastrointestinal: non tender, soft Neurologic/Psychiatric: alert, normal mood/affect (does not appear particularly anxious) Skin: warm/dry Progress/Results/Core Measures Results/Orders Vital Signs/I&O 08/18/18 08/18/18 09:30 10:16 Temp 99.3 Pulse 97 Resp 28 B/P (MAP) 156/101 (119) 155/94 (114) Pulse Ox 99 O2 Delivery Simple Mask O2 Flow Rate 2.00 Blood Pressure Mean: 119 Progress Progress Note : Progress Note This is an 83-year-old female with a history of recurrent epistaxis, anticoagulated with Eliquis for history of atrial fibrillation. Her epistaxis has already resolved. She admits that when she gets a nosebleed it makes her anxious and this may be one of the reasons that she came to the emergency department however she currently feels at her baseline. No recurrence of bleeding during period of observation in the ED. She will f/u w PCP and cardiology to discuss whether she may prefer to come off eliquis, although at this time I recommended that the benefit of continuing likely outweighs the harm of intermittent epistaxis. She will return for any concerning change in her condition. Departure Impression Primary Impression: Epistaxis Additional Impression: Anticoagulated Disposition: 01 HOME, SELF-CARE Condition: Stable Departure-Patient Inst. Referrals: ROSIBEL MIRANDA MD (PCP) Primary Care Physician VALE BRONSON (Family) Primary Care Physician SHANNON WIGGINS DO Aug 18, 2018 10:18
[2018-08-18 10:45] VITALS: BP 158/86
== END 2018-08-18 10:45 | disposition home or self-care (01) ==
LOC: EDUNIT# 09:19 → ER FS 09:21
DX: R04.0 Epistaxis (principal); I48.91 Unspecified atrial fibrillation; I10 Essential (primary) hypertension; K21.9 Gastro-esophageal reflux disease without esophagitis; E11.9 Type 2 diabetes mellitus without complications; Z85.72 Personal history of non-Hodgkin lymphomas; Z79.01 Long term (current) use of anticoagulants; Z79.51 Long term (current) use of inhaled steroids; Z88.1 Allergy status to other antibiotic agents

== ENCOUNTER 2018-08-18 21:36 | Emergency (ER) | payer MEDICARE ==
[~2018-08-18] VITALS: Ht 152.4 cm; Wt 49.9 kg
[2018-08-18] MEDS ORDERED: PHENYLEPHRINE 0.25% NASAL SPR (NEO-SYNEPHRINE) 15 ML NS ONE (21:40)
[2018-08-18] MEDS ORDERED: PHENYLEPHRINE 0.5% NASAL SPR (NEO-SYNEPHRINE) REG ONE (21:45)
--- NOTE | 2018-08-18 22:18 | ED EENT ---
History of Present Illness General Chief Complaint: Nasal Problems Stated Complaint: NOSE BLEED Nursing Triage Note: pt seen earlier today for epistaxis, was able to stop bleeding and discharged. pt returns tonight with nose bleed while performing breathing treatment Source: patient, family, EMS, RN notes reviewed, old records Exam Limitations: no limitations History of Present Illness Date Seen by Provider: Aug 18, 2018 Time Seen by Provider: 21:35 Initial Comments Patient brought back to the ED by EMS c/ recurred nose bleed. Was seen here earlier in the day for the same and was discharge p/ it seemed to be controlled. States she was taking a neb treatment tonight when it started again. States it is worse than earlier today. Has reportedly recently been started on Eliquis. Timing/Duration: abrupt, this evening Severity: moderate Location: nose Prearrival Treatment: squeezing nostrils Modifying Factors: Improves With Albuterol Nebulizer Associated Symptoms: denies symptoms Allergies and Home Medications Allergies Coded Allergies: neomycin (Verified Allergy, Unknown, 08/18/18) Home Medications Amlodipine Besylate 5 Mg Tablet, 5 MG PO DAILY, (Reported) Fluticasone Propionate 9.9 Ml [place].susp, 1 SPRAY NS DAILY, (Reported) 1 SPRAY EACH NARE DAILY Metoprolol Succinate 25 Mg Tab.er.24h, 25 MG PO BID, (Reported) Patient Home Medication List Home Medication List Reviewed: Yes Review of Systems Review of Systems Constitutional: see HPI Nose: see HPI, epistaxis All Other Systems Reviewed Negative Unless Noted: Yes Past Zhrtvrb-Ufhttl-Ltidcf Hx Patient Social History Alcohol Use: Denies Use Recreational Drug Use: No 2nd Hand Smoke Exposure: No Recent Foreign Travel: No Contact w/Someone Who Travel: No Recent Infectious Disease Expo: No Recent Hopitalizations: No Physical Abuse: No Sexual Abuse: No Mistreated: No Fear: No Immunizations Up To Date Date of Influenza Vaccine: Mar 17, 2019 Seasonal Allergies Seasonal Allergies: Yes Past Medical History Surgeries: Yes Eye Surgery Respiratory: No Cardiac: Yes Atrial Fibrillation, Hypertension Neurological: No Genitourinary: No Gastrointestinal: Yes Gastroesophageal Reflux Musculoskeletal: No Endocrine: Yes Diabetes, Non-Insulin dep HEENT: Yes (OP surgeries on eyes, Non-Hodgkins Lymphoma ) Cataract Cancer: Yes (Non-Hodgkins Lyphoma) Lymphoma Psychosocial: No Integumentary: No Physical Exam Vital Signs Vital Signs - First Documented 08/18/18 22:04 Temp 97.4 Pulse 155 Resp 18 B/P (MAP) 140/113 (122) Pulse Ox 95 O2 Delivery Room Air Height, Weight, BMI Height: 5'3.00" Weight: 110lbs. oz. 49.588988yb; BMI Method:Stated General Appearance: mild distress, thin, other (anxious) Nose: active bleeding (from the left) Cardiovascular: tachycardia Respiratory: no respiratory distress Neurologic/Psychiatric: alert, other (anxious) Skin: warm/dry Procedures/Interventions Nasal : Nasal Location: Both Clots Cleared from Nasal: Patient Blowing Nasal Drops Instilled: Afrin Inspection with: Otoscope Nasal Procedures: Rapid Rhino (B/L) Progress Bleed controlled. Progress/Results/Core Measures Results/Orders Lab Results Laboratory Tests Test 08/18/18 22:23 Range/Units White Blood Count 7.3 4.3-11.0 10^3/uL Red Blood Count 4.20 L 4.35-5.85 10^6/uL Hemoglobin 11.6 11.5-16.0 G/DL Hematocrit 36 35-52 % Mean Corpuscular Volume 86 80-99 FL Mean Corpuscular Hemoglobin 28 25-34 PG Mean Corpuscular Hemoglobin Concent 32 32-36 G/DL Red Cell Distribution Width 14.2 10.0-14.5 % Platelet Count 290 130-400 10^3/uL Mean Platelet Volume 10.3 7.4-10.4 FL Prothrombin Time 14.1 12.2-14.7 SEC INR Comment 1.1 0.8-1.4 Activated Partial Thromboplast Time 22 L 24-35 SEC Sodium Level 135 135-145 MMOL/L Potassium Level 3.5 L 3.6-5.0 MMOL/L Chloride Level 96 L 98-107 MMOL/L Carbon Dioxide Level 25 21-32 MMOL/L Anion Gap 14 5-14 MMOL/L Blood Urea Nitrogen 16 7-18 MG/DL Creatinine 0.60 0.60-1.30 MG/DL Estimat Glomerular Filtration Rate > 60 BUN/Creatinine Ratio 27 Glucose Level 199 H 70-105 MG/DL Calcium Level 9.2 8.5-10.1 MG/DL Corrected Calcium 9.3 8.5-10.1 MG/DL Total Bilirubin 0.3 0.1-1.0 MG/DL Aspartate Amino Transf (AST/SGOT) 13 5-34 U/L Alanine Aminotransferase (ALT/SGPT) 11 0-55 U/L Alkaline Phosphatase 61 40-136 U/L Total Protein 7.4 6.4-8.2 GM/DL Albumin 3.9 3.2-4.5 GM/DL My Orders Orders - ALEM OLEARY DO Phenylephrine 0.5% Nasal [place] (Pan-Syne (08/18/18 21:45) Phenylephrine 0.25% Nasal [place]ra (Pan-Syne (08/18/18 21:40) Cbc No Diff (08/18/18 21:48) Comprehensive Metabolic Panel (08/18/18 21:48) Protime With Inr (08/18/18 21:48) Partial Thromboplastin Time (08/18/18 21:48) Amoxicillin Capsule (Polymox Capsule) (08/18/18 23:00) Medications Given in ED Current Medications Medications Dose Ordered Sig/Melinda Route Start Time Stop Time Status Last Admin Dose Admin Phenylephrine HCl 15 ml STK-MED ONCE NS 08/18/18 21:40 08/18/18 21:43 DC 08/18/18 21:43 1 ML Vital Signs/I&O 08/18/18 22:04 Temp 97.4 Pulse 155 Resp 18 B/P (MAP) 140/113 (122) Pulse Ox 95 O2 Delivery Room Air Blood Pressure Mean: 122 Departure Impression Primary Impression: Epistaxis Disposition: 01 HOME, SELF-CARE Condition: Improved Departure-Patient Inst. Decision time for Depature: 23:22 Referrals: ROSIBEL MIRANDA MD (PCP) Primary Care Physician VALE BRONSON (Family) Primary Care Physician CANDELARIO MCRAE MD Patient Instructions: Nosebleeds (DC) Add. Discharge Instructions: All discharge instructions reviewed with patient and/or family. Voiced understanding. Call Dr. Mcrae's office in the AM, 4/5, to arrange follow up and removal of your nasal balloons. May take 1000 MG of Tylenol every 6 hours as needed for pain. Recommend checking with your forensic examiner regarding the blood thinner. Don't think she is going to tolerate it. ALEM OLEARY DO Aug 18, 2018 22:18
[2018-08-18 22:34] LABS: WHITE BLOOD COUNT 7.3 10^3/uL (4.3-11.0)
[2018-08-18 22:35] LABS: HEMOGLOBIN 11.6 G/DL (11.5-16.0); MEAN PLATELET VOLUME 10.3 FL (7.4-10.4); RED CELL DISTRIBUTION WIDTH 14.2 % (10.0-14.5)
[2018-08-18 22:46] LABS: INR 1.1 (0.8-1.4); PROTHROMBIN TIME PATIENT 14.1 SEC (12.2-14.7)
[2018-08-18 22:53] LABS: ALANINE AMINOTRANSFERASE 11 U/L (0-55); ALBUMIN 3.9 GM/DL (3.2-4.5); ALKALINE PHOSPHATASE 61 U/L (40-136); BILIRUBIN,TOTAL 0.3 MG/DL (0.1-1.0); BUN/CREATININE RATIO 27; CALCIUM 9.2 MG/DL (8.5-10.1); CARBON DIOXIDE 25 MMOL/L (21-32); CHLORIDE 96 MMOL/L (98-107); GFR ESTIMATED > 60; GLUCOSE 199 MG/DL (70-105); POTASSIUM 3.5 MMOL/L (3.6-5.0); SODIUM 135 MMOL/L (135-145); TOTAL PROTEIN 7.4 GM/DL (6.4-8.2)
[2018-08-18] MEDS ORDERED: AMOXICILLIN 500 MG (POLYMOX) CAP PO STA (23:00)
[2018-08-18 23:40] VITALS: BP 149/93
[2018-08-19] MEDS ORDERED: AMOXICILLIN 500 MG (POLYMOX) CAP PO SCH (09:00)
== END 2018-08-18 23:40 | disposition home or self-care (01) ==
LOC: EDUNIT# 21:36 → ER FS 21:37
DX: R04.0 Epistaxis (principal); I48.91 Unspecified atrial fibrillation; I10 Essential (primary) hypertension; K21.9 Gastro-esophageal reflux disease without esophagitis; E11.9 Type 2 diabetes mellitus without complications; Z85.72 Personal history of non-Hodgkin lymphomas; Z79.01 Long term (current) use of anticoagulants; Z88.1 Allergy status to other antibiotic agents
CPT/HCPCS: 36415; 80053; 85027; 85610; 85730; 99283

== ENCOUNTER → 2018-12-06 | Outpatient (CLI) | payer MEDICARE ==
[2018-12-06 11:18] LABS: BUN/CREATININE RATIO 17; CREATININE SERUM 0.75 MG/DL (0.60-1.30); GFR ESTIMATED > 60
[2018-12-06 11:55] LABS: ABG BASE EXCESS 4.3 MMOL/L (-2.5-2.5); ABG OXYGEN SATURATION 99 % (94-100); ABG PCO2 37 MMHG (35-45); ABG PH 7.49 (7.37-7.43); ABG PO2 101 MMHG (79-93)
[2018-12-06 11:57] LABS: ALLENS TEST YES-POS; INSPIRED O2 2; PATIENT TEMP 97.5; VENTILATOR NO
== END ==
LOC: RT 10:50
PROVIDERS: ATTEND Internal Medicine Critical Care Medicine
DX: J44.9 Chronic obstructive pulmonary disease, unspecified (principal); J84.10 Pulmonary fibrosis, unspecified; J98.4 Other disorders of lung; J30.9 Allergic rhinitis, unspecified
CPT/HCPCS: 36415; 36600; 82565; 82805; 84520

== ENCOUNTER → 2018-12-22 | Outpatient (CLI) | payer MEDICARE ==
--- NOTE | 2018-12-22 14:53 | Diagnostic Imaging Report ---
PROCEDURE: US Venous Lower Ext Gera. TECHNIQUE: Multiple real-time grayscale images were obtained over the lower extremities in various projections, bilaterally. Additional duplex Doppler and color Doppler images were also obtained. INDICATION: Bilateral lower extremity swelling. FINDINGS: There is no evidence of a right or left lower extremity DVT. Both lower extremity deep venous systems demonstrate normal compressibility with normal response to augmentation and Valsalva. No fluid collection or mass is seen. IMPRESSION: No evidence of right or left lower extremity DVT. Dictated by: Dictated on workstation # [id number]
== END ==
LOC: RAD 14:11
PROVIDERS: ATTEND Internal Medicine Critical Care Medicine
DX: M79.89 Other specified soft tissue disorders (principal)
CPT/HCPCS: 93970

== ENCOUNTER 2019-02-08 13:28 | Outpatient (RCR) | payer MEDICARE ==
[2018-11-14 13:50] LABS: BASOPHILS # (AUTO) 0.1 10^3/uL (0.0-0.1); BASOPHILS % (AUTO) 1 % (0-10); EOSINOPHILS # (AUTO) 0.4 10^3/uL (0.0-0.3); EOSINOPHILS % (AUTO) 4 % (0-10); HEMATOCRIT 38 % (35-52); HEMOGLOBIN 11.5 G/DL (11.5-16.0); LYMPHOCYTES # (AUTO) 1.1 X 10^3 (1.0-4.0); LYMPHOCYTES % (AUTO) 12 % (12-44); MEAN CORPUSCULAR HEMOGLOBIN 24 PG (25-34); MEAN CORPUSCULAR HGB CONC 31 G/DL (32-36); MEAN CORPUSCULAR VOLUME 78 FL (80-99); MEAN PLATELET VOLUME 10.4 FL (7.4-10.4); MONOCYTES # (AUTO) 0.4 X 10^3 (0.0-1.0); MONOCYTES % (AUTO) 4 % (0-12); NEUTROPHILS # (AUTO) 7.8 X 10^3 (1.8-7.8); NEUTROPHILS % (AUTO) 80 % (42-75); PLATELET COUNT 363 10^3/uL (130-400); RED CELL DISTRIBUTION WIDTH 14.9 % (10.0-14.5); WHITE BLOOD COUNT 9.8 10^3/uL (4.3-11.0)
[2018-11-14 14:17] LABS: SMEAR SCAN COMMENT YES
[2018-11-14 14:25] LABS: ALANINE AMINOTRANSFERASE 11 U/L (0-55); ALBUMIN 3.8 GM/DL (3.2-4.5); ALKALINE PHOSPHATASE 62 U/L (40-136); BILIRUBIN,TOTAL 0.4 MG/DL (0.1-1.0); BUN/CREATININE RATIO 13; CALCIUM 9.3 MG/DL (8.5-10.1); CARBON DIOXIDE 29 MMOL/L (21-32); CHLORIDE 94 MMOL/L (98-107); CREATININE SERUM 0.78 MG/DL (0.60-1.30); GFR ESTIMATED > 60; GLUCOSE 310 MG/DL (70-105); POTASSIUM 3.4 MMOL/L (3.6-5.0); SODIUM 133 MMOL/L (135-145); TOTAL PROTEIN 7.2 GM/DL (6.4-8.2)
[2019-01-30 14:14] LABS: BASOPHILS # (AUTO) 0.1 10^3/uL (0.0-0.1); BASOPHILS % (AUTO) 1 % (0-10); EOSINOPHILS # (AUTO) 0.2 10^3/uL (0.0-0.3); EOSINOPHILS % (AUTO) 2 % (0-10); HEMATOCRIT 32 % (35-52); HEMOGLOBIN 9.6 G/DL (11.5-16.0); LYMPHOCYTES # (AUTO) 1.1 X 10^3 (1.0-4.0); LYMPHOCYTES % (AUTO) 11 % (12-44); MEAN CORPUSCULAR HEMOGLOBIN 24 PG (25-34); MEAN CORPUSCULAR HGB CONC 30 G/DL (32-36); MEAN CORPUSCULAR VOLUME 80 FL (80-99); MEAN PLATELET VOLUME 10.5 FL (7.4-10.4); MONOCYTES # (AUTO) 0.4 X 10^3 (0.0-1.0); MONOCYTES % (AUTO) 4 % (0-12); NEUTROPHILS % (AUTO) 82 % (42-75); PLATELET COUNT 378 10^3/uL (130-400); WHITE BLOOD COUNT 9.8 10^3/uL (4.3-11.0)
[2019-01-30 14:30] LABS: RETICULOCYTE % 1.49 % (0.50-2.40)
[2019-01-30 14:36] LABS: ALANINE AMINOTRANSFERASE 11 U/L (0-55); ALBUMIN 3.6 GM/DL (3.2-4.5); ALKALINE PHOSPHATASE 62 U/L (40-136); BILIRUBIN,TOTAL 0.4 MG/DL (0.1-1.0); BUN/CREATININE RATIO 12; CALCIUM 9.7 MG/DL (8.5-10.1); CARBON DIOXIDE 30 MMOL/L (21-32); CHLORIDE 92 MMOL/L (98-107); CREATININE SERUM 0.77 MG/DL (0.60-1.30); GFR ESTIMATED > 60; GLUCOSE 351 MG/DL (70-105); POTASSIUM 3.4 MMOL/L (3.6-5.0); SODIUM 130 MMOL/L (135-145); TOTAL PROTEIN 7.1 GM/DL (6.4-8.2)
[2019-02-08] MEDS ORDERED: FERRIC CARBOXYMALTOSE (CANCER) 750 MG in NS (IVPB) CANCER CENTER 250 ML IV SCH (13:45)
== END 2019-02-12 | disposition home or self-care (01) ==
LOC: ONC 13:28
PROVIDERS: ATTEND Internal Medicine Hematology & Oncology
DX: C88.4 Extranodal marginal zone B-cell lymphoma of mucosa-associated lymphoid tissue [MALT-lymphoma] (principal); J84.10 Pulmonary fibrosis, unspecified; J44.9 Chronic obstructive pulmonary disease, unspecified; I10 Essential (primary) hypertension; E11.9 Type 2 diabetes mellitus without complications; I71.2 Thoracic aortic aneurysm, without rupture; Z92.3 Personal history of irradiation; Z79.899 Other long term (current) drug therapy; Z79.84 Long term (current) use of oral hypoglycemic drugs
CPT/HCPCS: 36415; 80053; 82274; 82728; 83540; 83615; 85025; 85045; 96365; 99213

== ENCOUNTER → 2019-02-21 | Outpatient (CLI) | payer MEDICARE | LOC: CARD 14:48 | PROVIDERS: ATTEND Internal Medicine Interventional Cardiology | DX: I51.7 Cardiomegaly (principal); I36.1 Nonrheumatic tricuspid (valve) insufficiency; I71.2 Thoracic aortic aneurysm, without rupture | CPT/HCPCS: 93306 ==

== ENCOUNTER 2019-03-14 21:16 | Emergency (ER) | payer MEDICARE ==
[~2019-03-14] VITALS: Ht 160 cm; Wt 40.4 kg
[2019-03-14 22:05] LABS: BASOPHILS # (AUTO) 0.1 10^3/uL (0.0-0.1); BASOPHILS % (AUTO) 1 % (0-10); EOSINOPHILS # (AUTO) 0.2 10^3/uL (0.0-0.3); EOSINOPHILS % (AUTO) 2 % (0-10); HEMATOCRIT 41 % (35-52); HEMOGLOBIN 13.1 G/DL (11.5-16.0); LYMPHOCYTES # (AUTO) 1.4 X 10^3 (1.0-4.0); LYMPHOCYTES % (AUTO) 17 % (12-44); MEAN CORPUSCULAR HEMOGLOBIN 27 PG (25-34); MEAN CORPUSCULAR HGB CONC 32 G/DL (32-36); MEAN CORPUSCULAR VOLUME 86 FL (80-99); MONOCYTES # (AUTO) 0.4 X 10^3 (0.0-1.0); MONOCYTES % (AUTO) 5 % (0-12); NEUTROPHILS # (AUTO) 6.2 X 10^3 (1.8-7.8); NEUTROPHILS % (AUTO) 75 % (42-75); PLATELET COUNT 291 10^3/uL (130-400); RED CELL DISTRIBUTION WIDTH 19.8 % (10.0-14.5); WHITE BLOOD COUNT 8.2 10^3/uL (4.3-11.0)
--- NOTE | 2019-03-14 22:22 | ED Respiratory ---
General Chief Complaint: General Problems/Pain Stated Complaint: COPD/BACK PAIN Nursing Triage Note: PT AMB TO RM 9 WITH COMPLANIT OF LOW BACK PAIN FOR 2 DAYS. Source: patient, family Exam Limitations: no limitations History of Present Illness Date Seen by Provider: Mar 14, 2019 Time Seen by Provider: 21:38 Initial Comments Patient presents to the ER with family daughter and son-in-law and chief complaint of for the past couple days having an old lateral pain in her ribs whenever she takes a deep breath in. She has a history of COPD and has been coughing. No history of coronary disease. She says her cough is no worse than usual and is nonproductive. No fever but she's had chills. She also complained of dysuria to nursing. She has not taken anything for the pain nor does she want anything. Her family is concerned about bronchitis versus pneumonia. Allergies and Home Medications Allergies Coded Allergies: neomycin (Verified Allergy, Unknown, 08/18/18) Home Medications Amlodipine Besylate 5 Mg Tablet, 5 MG PO DAILY, (Reported) Fluticasone Propionate 9.9 Ml [place].susp, 1 SPRAY NS DAILY, (Reported) 1 SPRAY EACH NARE DAILY Metoprolol Succinate 25 Mg Tab.er.24h, 25 MG PO BID, (Reported) Potassium Chloride 20 Meq Tab.er.prt, 20 MEQ PO BID Prescribed by: DAVID GALLARDO on 03/14/192241 Prednisone 20 Mg Tab, 40 MG PO BID 2 tablets twice a day x2 days One tablet twice a day x4 days Prescribed by: DAVID GALLARDO on 03/14/190 Patient Home Medication List Home Medication List Reviewed: Yes Review of Systems Review of Systems Constitutional: chills; No fever, No malaise, No weakness EENTM: No ear pain, No eye pain Respiratory: see HPI, cough; No hemoptysis, No phlegm, No short of breath, No wheezing Cardiovascular: see HPI; No edema, No Hx of Intervention Gastrointestinal: No abdominal pain, No nausea, No vomiting Genitourinary: No discharge, No dysuria Musculoskeletal: see HPI, back pain Past Xbksudy-Ujsivp-Rhzruq Hx Patient Social History Alcohol Use: Rarely Uses Recreational Drug Use: No Smoking Status: Never a Smoker 2nd Hand Smoke Exposure: No Recent Foreign Travel: No Contact w/Someone Who Travel: No Recent Infectious Disease Expo: No Recent Hopitalizations: No Physical Abuse: No Sexual Abuse: No Mistreated: No Fear: No Immunizations Up To Date Tetanus Booster (TDap): Unknown PED Vaccines UTD: Yes Date of Influenza Vaccine: Mar 17, 2019 Seasonal Allergies Seasonal Allergies: Yes Past Medical History Surgeries: Yes Eye Surgery Respiratory: No Cardiac: Yes Atrial Fibrillation, Hypertension Neurological: No Genitourinary: No Gastrointestinal: Yes Gastroesophageal Reflux Musculoskeletal: No Endocrine: Yes Diabetes, Non-Insulin dep HEENT: Yes (OP surgeries on eyes, Non-Hodgkins Lymphoma ) Cataract Cancer: Yes (Non-Hodgkins Lyphoma) Lymphoma Psychosocial: No Integumentary: No Physical Exam Vital Signs - First Documented 03/14/19 21:28 Temp 35.7 Pulse 97 Resp 30 B/P (MAP) 157/103 (121) Pulse Ox 94 O2 Delivery Nasal Cannula O2 Flow Rate 2.00 Capillary Refill : Less Than 3 Seconds Height: 5'3.00" Weight: 110lbs. oz. 49.437714sf; 15.00 BMI Method:Stated General Appearance: WD/WN, no apparent distress Eyes: Bilateral Eye Normal Inspection, Bilateral Eye PERRL, Bilateral Eye EOMI HEENT: PERRL/EOMI, normal ENT inspection, pharynx normal Neck: full range of motion, normal inspection Respiratory: chest non-tender, no respiratory distress, no accessory muscle use, crackles (bibasilar left worse than right); No wheezing; other (patient indicates the pain is lateral to her low thoracic spine on the left along the ribs.) Cardiovascular: normal peripheral pulses, regular rate, rhythm, no edema Gastrointestinal: normal bowel sounds, non tender, soft Extremities: normal range of motion, non-tender, normal capillary refill Neurologic/Psychiatric: alert, normal mood/affect, oriented x 3 Skin: normal color, warm/dry Progress/Results/Core Measures Suspected Sepsis Recent Fever Within 48 Hours: No Infection Criteria Present: None New/Unexplained Altered Menta: No Sepsis Screen: No Definite Risk SIRS Temperature: Pulse: 97 Respiratory Rate: 30 Laboratory Tests 03/14/19 21:37: White Blood Count 8.2 Blood Pressure 157 /103 Mean: 121 Laboratory Tests 03/14/19 21:37: Creatinine 0.62, Platelet Count 291, Total Bilirubin 0.4 Results/Orders Lab Results Laboratory Tests Test 03/14/19 21:37 03/14/19 22:58 Range/Units White Blood Count 8.2 4.3-11.0 10^3/uL Red Blood Count 4.82 4.35-5.85 10^6/uL Hemoglobin 13.1 11.5-16.0 G/DL Hematocrit 41 35-52 % Mean Corpuscular Volume 86 80-99 FL Mean Corpuscular Hemoglobin 27 25-34 PG Mean Corpuscular Hemoglobin Concent 32 32-36 G/DL Red Cell Distribution Width 19.8 H 10.0-14.5 % Platelet Count 291 130-400 10^3/uL Mean Platelet Volume 10.0 7.4-10.4 FL Neutrophils (%) (Auto) 75 42-75 % Lymphocytes (%) (Auto) 17 12-44 % Monocytes (%) (Auto) 5 0-12 % Eosinophils (%) (Auto) 2 0-10 % Basophils (%) (Auto) 1 0-10 % Neutrophils # (Auto) 6.2 1.8-7.8 X 10^3 Lymphocytes # (Auto) 1.4 1.0-4.0 X 10^3 Monocytes # (Auto) 0.4 0.0-1.0 X 10^3 Eosinophils # (Auto) 0.2 0.0-0.3 10^3/uL Basophils # (Auto) 0.1 0.0-0.1 10^3/uL Sodium Level 135 135-145 MMOL/L Potassium Level 2.9 L 3.6-5.0 MMOL/L Chloride Level 96 L 98-107 MMOL/L Carbon Dioxide Level 29 21-32 MMOL/L Anion Gap 10 5-14 MMOL/L Blood Urea Nitrogen 7 7-18 MG/DL Creatinine 0.62 0.60-1.30 MG/DL Estimat Glomerular Filtration Rate > 60 BUN/Creatinine Ratio 11 Glucose Level 171 H 70-105 MG/DL Calcium Level 8.9 8.5-10.1 MG/DL Corrected Calcium 9.1 8.5-10.1 MG/DL Total Bilirubin 0.4 0.1-1.0 MG/DL Aspartate Amino Transf (AST/SGOT) 15 5-34 U/L Alanine Aminotransferase (ALT/SGPT) 15 0-55 U/L Alkaline Phosphatase 74 40-136 U/L Troponin I < 0.028 <0.028 NG/ML C-Reactive Protein High Sensitivity 0.75 H 0.00-0.50 MG/DL B-Type Natriuretic Peptide 34.2 <100.0 PG/ML Total Protein 7.5 6.4-8.2 GM/DL Albumin 3.8 3.2-4.5 GM/DL Urine Color YELLOW Urine Clarity SL CLOUDY Urine pH 7 5-9 Urine Specific [place] 1.010 L 1.016-1.022 Urine Protein 2+ H NEGATIVE Urine Glucose (UA) 4+ H NEGATIVE Urine Ketones NEGATIVE NEGATIVE Urine Nitrite POSITIVE H NEGATIVE Urine Bilirubin NEGATIVE NEGATIVE Urine Urobilinogen NORMAL NORMAL MG/DL Urine Leukocyte Esterase 3+ H NEGATIVE Urine RBC (Auto) 1+ H NEGATIVE Urine RBC 2-5 H /HPF Urine WBC >100 H /HPF Urine Squamous Epithelial Cells 10-25 H /HPF Urine Crystals NONE /LPF Urine Bacteria MODERATE H /HPF Urine Casts NONE /LPF Urine Mucus SMALL H /LPF Urine Culture Indicated YES My Orders Orders - DAVID GALLARDO Chest Pa/Lat (2 View) (03/14/19 21:56) Cbc With Automated Diff (03/14/19 21:56) Comprehensive Metabolic Panel (03/14/19 21:56) Hs C Reactive Protein (03/14/19 21:56) BNP (03/14/19 21:56) Ed Iv/Invasive Line Start (03/14/19 21:56) Continuous Ekg Monitoring (03/14/19 22:22) Ekg Tracing (03/14/19 22:22) Troponin I (03/14/19 22:22) Ua Culture If Indicated (03/14/19 22:22) Potassium Chloride (Tablet) (K Dur Table (03/14/19 22:45) Urine Culture (03/14/19 22:58) Vital Signs/I&O 03/14/19 21:28 Temp 35.7 Pulse 97 Resp 30 B/P (MAP) 157/103 (121) Pulse Ox 94 O2 Delivery Nasal Cannula O2 Flow Rate 2.00 Capillary Refill : Less Than 3 Seconds Blood Pressure Mean: 121 POS Progress Note : Time: 22:27 Progress Note Musculoskeletal versus pleuritic. EKG and troponin to rule out atypical coronary syndrome. It has been going on for several days so a single troponin should be sufficient. She doesn't want anything for pain this time. Planned obtain a 2 view chest x-ray and some labs to help rule in or out pneumonia versus bronchitis. She denies being on steroids but has prednisone listed in her home meds. We then put her on a short burst course of prednisone if there is no evidence of a pneumonia. There is no rash or itching to suggest shingles. ECG Initial ECG Impression Date: Mar 14, 2019 Initial ECG Impression Time: 22:30 Initial ECG Rate: 92 Initial ECG Rhythm: Normal Sinus Initial ECG Intervals: Normal Initial ECG Impression: Normal, Nonspecific Changes Comment No clinically significant ST elevation or depression. Diagnostic Imaging Diagonstic Imaging: Xray Plain Films/CT/US/NM/MRI: chest (2v) Comments Chronic scarring unchanged from 2018. No acute cardiopulmonary process. Reviewed: Reviewed by Me Departure Impression Primary Impression: Pleurisy Additional Impressions: Hypokalemia UTI (urinary tract infection) Qualified Codes: N30.01 - Acute cystitis with hematuria Disposition: HOME, SELF-CARE Condition: Stable Departure-Patient Inst. Decision time for Depature: 23:10 Referrals: [facility] (PCP) Primary Care Physician VALE BRONSON (Family) Primary Care Physician Patient Instructions: Pleuritic Chest Pain (DC), Urinary Tract Infections in Adults Add. Discharge Instructions: Drink plenty of fluids. Omnicef one capsule twice a day for the next week. Prednisone 40 mg twice a day for the next 2 days. Then 20 mg twice a day for 4 days. He may use Tylenol 1000 mg every 8 hours as needed for pain. Heating pads and topical creams can be helpful. One tablet of potassium 20 mEq twice a day with food for the next week. Follow-up in one to 2 weeks with primary care to have this rechecked. Follow-up with primary care if you're still having significant discomfort. All discharge instructions reviewed with patient and/or family. Voiced understanding. Scripts Cefdinir (Cefdinir) 300 Mg Capsule 300 MG PO BID for 7 Days, #14 CAP 0 Refills Prov: DAVID GALLARDO 03/14/19 Potassium Chloride (Potassium Chloride) 20 Meq Tab.er.prt 20 MEQ PO BID for 7 Days, #14 TAB 0 Refills Prov: DAVID GALLARDO 03/14/19 Prednisone (Prednisone) 20 Mg Tab 40 MG PO BID for 6 Days, #16 TAB 0 Refills 2 tablets twice a day x2 days One tablet twice a day x4 days Prov: DAVID GALLARDO 03/14/19 DAVID GALLARDO Mar 14, 2019 22:22 POS
[2019-03-14 22:27] LABS: ALANINE AMINOTRANSFERASE 15 U/L (0-55); ALBUMIN 3.8 GM/DL (3.2-4.5); ALKALINE PHOSPHATASE 74 U/L (40-136); BILIRUBIN,TOTAL 0.4 MG/DL (0.1-1.0); BUN/CREATININE RATIO 11; CALCIUM 8.9 MG/DL (8.5-10.1); CARBON DIOXIDE 29 MMOL/L (21-32); CHLORIDE 96 MMOL/L (98-107); CREATININE SERUM 0.62 MG/DL (0.60-1.30); GFR ESTIMATED > 60; GLUCOSE 171 MG/DL (70-105); POTASSIUM 2.9 MMOL/L (3.6-5.0); SODIUM 135 MMOL/L (135-145); TOTAL PROTEIN 7.5 GM/DL (6.4-8.2)
[2019-03-14] MEDS ORDERED: PRD20T PO (22:40)
[2019-03-14] MEDS ORDERED: POTA20TA15 PO (22:42)
[2019-03-14] MEDS ORDERED: KCL 20 MEQ TAB (K-DUR) PO ONE (22:45)
[2019-03-14 23:08] LABS: BACTERIA,URINE MODERATE /HPF; BILIRUBIN,URINE NEGATIVE (NEGATIVE); CLARITY,URINE SL CLOUDY; COLOR,URINE YELLOW; GLUCOSE, URINE (UA) 4+ (NEGATIVE); KETONES,URINE NEGATIVE (NEGATIVE); LEUKOCYTE ESTERASE ,URINE 3+ (NEGATIVE); NITRITE,URINE POSITIVE (NEGATIVE); PH,URINE 7 (5-9); PROTEIN,URINE 2+ (NEGATIVE); WBC,URINE >100 /HPF
[2019-03-14] MEDS ORDERED: CEFD300C3 PO (23:11)
[2019-03-14] MEDS ORDERED: cefTRIAXone FOR IV USE 1,000 MG in WATER (STERILE) FOR INJECTION 10 ML IV ONE (23:15)
[2019-03-14 23:22] VITALS: BP 153/104
--- NOTE | 2019-03-15 06:33 | Diagnostic Imaging Report ---
INDICATION: Cough, fever. COMPARISON: 05/27/2017. FINDINGS: Frontal and lateral views of the chest demonstrate bilateral chronic pulmonary fibrosis. The heart is prominent. No obvious new infiltrate is seen. There is no pneumothorax or effusion. Osseous structures are stable. IMPRESSION: Chronic pulmonary fibrosis. Underlying acute pneumonia not excluded. Dictated by: Dictated on workstation # [id number]
== END 2019-03-14 23:22 | disposition home or self-care (01) ==
LOC: EDUNIT# 21:16 → ER 21:17
DX: R09.1 Pleurisy (principal); E87.6 Hypokalemia; N39.0 Urinary tract infection, site not specified; J44.9 Chronic obstructive pulmonary disease, unspecified; I10 Essential (primary) hypertension; E11.9 Type 2 diabetes mellitus without complications; I48.91 Unspecified atrial fibrillation; K21.9 Gastro-esophageal reflux disease without esophagitis; Z88.1 Allergy status to other antibiotic agents; Z79.51 Long term (current) use of inhaled steroids; Z85.72 Personal history of non-Hodgkin lymphomas
CPT/HCPCS: 36415; 71046; 80053; 81000; 83880; 84484; 85025; 86141; 87088; 93005; 96374

== ENCOUNTER 2019-03-16 12:53 | Outpatient (RCR) | payer MEDICARE ==
[2019-02-16 11:12] LABS: BASOPHILS % (AUTO) 0 % (0-10); EOSINOPHILS # (AUTO) 0.2 10^3/uL (0.0-0.3); EOSINOPHILS % (AUTO) 2 % (0-10); HEMATOCRIT 36 % (35-52); HEMOGLOBIN 10.8 G/DL (11.5-16.0); LYMPHOCYTES # (AUTO) 1.2 X 10^3 (1.0-4.0); LYMPHOCYTES % (AUTO) 10 % (12-44); MEAN CORPUSCULAR HEMOGLOBIN 25 PG (25-34); MEAN CORPUSCULAR HGB CONC 30 G/DL (32-36); MEAN CORPUSCULAR VOLUME 84 FL (80-99); MEAN PLATELET VOLUME 10.7 FL (7.4-10.4); MONOCYTES # (AUTO) 0.6 X 10^3 (0.0-1.0); MONOCYTES % (AUTO) 5 % (0-12); NEUTROPHILS # (AUTO) 10.6 X 10^3 (1.8-7.8); NEUTROPHILS % (AUTO) 84 % (42-75); PLATELET COUNT 325 10^3/uL (130-400); RED CELL DISTRIBUTION WIDTH 18.7 % (10.0-14.5); WHITE BLOOD COUNT 12.6 10^3/uL (4.3-11.0)
[2019-02-16 11:27] LABS: BUN/CREATININE RATIO 18; CALCIUM 9.3 MG/DL (8.5-10.1); CARBON DIOXIDE 31 MMOL/L (21-32); CHLORIDE 94 MMOL/L (98-107); CREATININE SERUM 0.72 MG/DL (0.60-1.30); GFR ESTIMATED > 60; GLUCOSE 338 MG/DL (70-105); POTASSIUM 3.4 MMOL/L (3.6-5.0); SODIUM 135 MMOL/L (135-145)
[~2019-03-16 12:53] MED LIST changes: +CEFD300C3 PO; +FERRIC CARBOXYMALTOSE (CANCER) 750 MG in NS (IVPB) CANCER CENTER 250 ML IV SCH; +POTA20TA15 PO; +PRD20T PO
[2019-03-16 13:11] LABS: BASOPHILS % (AUTO) 0 % (0-10); EOSINOPHILS # (AUTO) 0.1 10^3/uL (0.0-0.3); EOSINOPHILS % (AUTO) 1 % (0-10); HEMATOCRIT 39 % (35-52); HEMOGLOBIN 12.4 G/DL (11.5-16.0); LYMPHOCYTES # (AUTO) 1.1 X 10^3 (1.0-4.0); LYMPHOCYTES % (AUTO) 12 % (12-44); MEAN CORPUSCULAR HEMOGLOBIN 27 PG (25-34); MEAN CORPUSCULAR HGB CONC 32 G/DL (32-36); MEAN CORPUSCULAR VOLUME 87 FL (80-99); MEAN PLATELET VOLUME 10.3 FL (7.4-10.4); MONOCYTES # (AUTO) 0.5 X 10^3 (0.0-1.0); MONOCYTES % (AUTO) 6 % (0-12); NEUTROPHILS # (AUTO) 7.4 X 10^3 (1.8-7.8); NEUTROPHILS % (AUTO) 81 % (42-75); PLATELET COUNT 290 10^3/uL (130-400); RED CELL DISTRIBUTION WIDTH 19.8 % (10.0-14.5); WHITE BLOOD COUNT 9.2 10^3/uL (4.3-11.0)
[2019-03-16 13:29] LABS: ALANINE AMINOTRANSFERASE 14 U/L (0-55); ALBUMIN 3.7 GM/DL (3.2-4.5); ALKALINE PHOSPHATASE 68 U/L (40-136); BILIRUBIN,TOTAL 0.3 MG/DL (0.1-1.0); BUN/CREATININE RATIO 16; CALCIUM 9.8 MG/DL (8.5-10.1); CARBON DIOXIDE 29 MMOL/L (21-32); CHLORIDE 99 MMOL/L (98-107); CREATININE SERUM 0.64 MG/DL (0.60-1.30); GFR ESTIMATED > 60; GLUCOSE 257 MG/DL (70-105); SODIUM 138 MMOL/L (135-145); TOTAL PROTEIN 7.3 GM/DL (6.4-8.2)
== END 2019-05-17 | disposition home or self-care (01) ==
LOC: ONC 12:53
PROVIDERS: ATTEND Internal Medicine Hematology & Oncology
DX: D69.3 Immune thrombocytopenic purpura (principal); D80.1 Nonfamilial hypogammaglobulinemia; Z86.718 Personal history of other venous thrombosis and embolism; D59.1 Other autoimmune hemolytic anemias; D69.41 Evans syndrome
CPT/HCPCS: 36415; 80048; 80053; 82728; 83615; 85025; 96365; 99213